=== PATIENT | female | born 1990 | race Caucasian/White ===

== ENCOUNTER → 2017-04-19 | Outpatient (CLI) | payer BC | LOC: HPND 08:27 | PROVIDERS: ATTEND Obstetrics & Gynecology | DX: O10.012 Pre-existing essential hypertension complicating pregnancy, second trimester (principal); O36.5920 Maternal care for other known or suspected poor fetal growth, second trimester, not applicable or unspecified | CPT/HCPCS: 76811; 76825; 76827; 93325 ==

== ENCOUNTER → 2017-05-10 | Outpatient (CLI) | payer BC | LOC: HPND 09:51 | PROVIDERS: ATTEND Obstetrics & Gynecology | DX: O10.012 Pre-existing essential hypertension complicating pregnancy, second trimester (principal); O99.342 Other mental disorders complicating pregnancy, second trimester; O36.5920 Maternal care for other known or suspected poor fetal growth, second trimester, not applicable or unspecified | CPT/HCPCS: 76816; 76818; 76820; 76821 ==

== ENCOUNTER → 2017-05-25 | Emergency (ER) | payer BC ==
[2017-05-25] VITALS (7 sets, daily range): BP systolic 131–146; BP diastolic 77–90; PULSE 75–91; RESP 18
[~2017-05-25] VITALS: Ht 157.5 cm; Wt 82.0 kg
[~2017-05-25] MED LIST: ASPI81CH6 CHEW; LABE200T2 PO; LEXA10TA PO; NIFE1TAB86 PO; PANT40TA3 PO; PREN29CH
--- NOTE | 2017-05-25 22:22 | PD ---
HPI Chief Complaint vaginal bleeding Date Seen: May 25, 2017 Time Seen: 22:00 Travel History International Travel<30 Days: No Contact w/Intl Traveler<30Days: No Known Affected Area: No History of Present Illness HPI 27 yo wf doing well but developed vaginal bleeding spontaneous. Not associated with sex. And has had elevated BP. On labetalol 200mg BID and procardia XL 60 mg Weeks Gestation: 28 : 2 History Past Medical History Narrative Medical hypertension Past Surgical History Surgical History: No Previous Surgery Social History Alcohol Use: No Tobacco Use: No Substance Abuse: No Allergies-Medications (Allergen,Severity, Reaction): Coded Allergies: No Known Allergies (Verified Allergy, 05/25/17) Review of Systems Except as stated in HPI: all other systems reviewed are Neg Physical Exam Narrative GENERAL: Well-nourished, well-developed patient. SKIN: Warm and dry. HEAD: Normocephalic and atraumatic. EYES: No scleral icterus. No injection or drainage. ENT: No nasal drainage noted. Mucous membranes pink. Airway patent. NECK: Supple, trachea midline. No JVD. CARDIOVASCULAR: Regular rate and rhythm without murmurs, gallops, or rubs. RESPIRATORY: Breath sounds equal bilaterally. No accessory muscle use. BREASTS: Bilateral exam showed no masses , no retractions, no nipple discharge. ABDOMEN/GI: Abdomen soft, non-tender, bowel sounds present, no rebound, no guarding Gravid to [-] weeks size Fundal Height: [-] GENITOURINARY: External Genitalia: intact and normal in appearance BUS glands: [-] Cervix: [-] Dilatation: closed blood at os Effacement: 70 Station: [-] Presentation: vtx Membranes: intact Uterine Contractions: [-] FHT's: Category: 1 Baseline: [-] Reactive: [-] Variability: [-] Decels: [-] EXTREMITIES: No cyanosis or edema. BACK: Nontender without obvious deformity. No CVA tenderness. NEUROLOGICAL: Awake and alert. Motor and sensory grossly within normal limits. Five out of 5 muscle strength in all muscle groups. Normal speech. Data Data Vital Signs Reviewed: No Orders Orders Vital Signs (Adult) .ON ADMISSION (05/25/17 21:48) ^ Labor Status (05/25/17 21:48) Urinalysis - C+S If Indicated (05/25/17 21:48) ^ Non Stress Test (05/25/17 21:48) Diet Regular Basic (05/26/17 Breakfast) Cbc No Diff, Includes Plts (05/25/17 21:48) Comprehensive Metabolic Panel (05/25/17 21:48) Group B Strep: Negative MDM Medical Record Reviewed: Yes Interpretation(s) vaginal bleeding at 28 weeks Plan doing well, LABS, 24 hour urine and consider 23 hour obs iMcah Damico MD May 25, 2017 22:22
[2017-05-25 22:33] LABS: HEMATOCRIT 34.7 % (35.0-46.0); MEAN CELL VOLUME 96.5 FL (80.0-100.0); MEAN CORPUSCULAR HEMOGLOBIN 33.5 PG (27.0-34.0); MEAN CORPUSCULAR HGB CONC 34.7 % (32.0-36.0); MEAN PLATELET VOLUME 8.4 FL (7.0-11.0); PLATELET COUNT 226 TH/MM3 (150-450); RED BLOOD COUNT 3.59 MIL/MM3 (4.00-5.30); WHITE BLOOD COUNT 12.4 TH/MM3 (4.0-11.0)
[2017-05-25 22:38] LABS: BACTERIA, URINE RARE /hpf; BILIRUBIN, URINE NEG (NEG); BLOOD, URINE SMALL (NEG); GLUCOSE,URINE TRACE mg/dL (NEG); KETONE, URINE NEG (NEG); NITRITE,URINE NEG (NEG); PH, URINE 6.5 (5.0-8.5); SQUAMOUS EPITHELIAL CELL URINE <1 /hpf (0-5); URINE COLOR LIGHT-YELLOW (YELLW/STRAW); URINE LEUKOCYTE ESTERASE NEG (NEG)
[2017-05-25 22:50] LABS: ALBUMIN 2.9 GM/DL (3.4-5.0); ALT (GPT) 19 U/L (10-53); AST (GOT) 13 U/L (15-37); BICARBONATE 27.5 MEQ/L (21.0-32.0); BLOOD UREA NITROGEN 7 MG/DL (7-18); CALCIUM 8.5 MG/DL (8.5-10.1); CHLORIDE 106 MEQ/L (98-107); CREATININE 0.45 MG/DL (0.50-1.00); GLOMERULAR FILTRATION RATE 165 ML/MIN (>89); GLUCOSE,RANDOM 104 MG/DL (74-106); SODIUM (NA) 139 MEQ/L (136-145)
[2017-05-25 22:52] LABS: ALKALINE PHOSPHATASE 84 U/L (45-117); TOTAL BILIRUBIN ADULT 0.1 MG/DL (0.2-1.0); TOTAL PROTEIN 6.4 GM/DL (6.4-8.2)
[2017-06-01 17:21] VITALS: BP 141/81; PULSE 75; RESP 16; TEMP 98
== END | disposition home or self-care (01) ==
LOC: HOBED 21:05
DX: O46.93 Antepartum hemorrhage, unspecified, third trimester (principal); Z3A.28 28 weeks gestation of pregnancy
CPT/HCPCS: 36415; 80053; 81001; 85027; 99283

== ENCOUNTER 2017-05-26 12:10 | Inpatient (IN) | payer BC ==
[~2017-05-26] VITALS: Ht 157.5 cm; Wt 81.6 kg
[2017-05-26] VITALS (7 sets, daily range): BP systolic 148–157; BP diastolic 69–99; PULSE 68–81; RESP 14–20; TEMP 98–98.1
[~2017-05-26 12:10] MED LIST changes: -ASPI81CH6 CHEW
--- NOTE | 2017-05-26 12:58 | HHI.HP ---
HPI Date Seen: May 26, 2017 Time Seen: 12:45 Travel History International Travel<30 Days: No Contact w/Intl Traveler<30Days: No Known Affected Area: No History of Present Illness HPI 27 yo 28 2/7with chronic hypertension who is on 2 medications to control BP. She had bleeding last night and was monitored and sent home last night. she returned to [facility] [place] routine testing and has S/D ratio jumped to 7.2 change and plan to complete 24 hour urine in house and get steroids Weeks Gestation: 28 Para: 0 : 2 History Past Medical History Narrative Medical anxiety HTN, Gest HTN IUGR Past Surgical History Surgical History: No Previous Surgery Family History Family History: Negative Social History Alcohol Use: No Tobacco Use: No Substance Abuse: No Allergies-Medications (Allergen,Severity, Reaction): Coded Allergies: No Known Allergies (Verified Allergy, Unknown, 05/26/17) Home Meds Reported Medications Pantoprazole (Pantoprazole) 40 Mg Tab, 40 MG PO DAILY for Reflux, #30 TAB 0 Refills 05/26/17 Escitalopram (Lexapro) 10 Mg Tab, 10 MG PO DAILY, #30 TAB 0 Refills 05/26/17 Nifedipine ER 24 HR (Procardia XL) 60 Mg Tab, 60 MG PO DAILY, #30 TAB 0 Refills 05/26/17 Labetalol (Labetalol) 200 Mg Tab, 200 MG PO BID for Blood Pressure Management, TAB 0 Refills 05/26/17 Without A Vit W/ Fe F (Prenata 29-1 mg) 29 Mg Iron-1 Mg Chw, DAILY 05/26/17 Review of Systems Except as stated in HPI: all other systems reviewed are Neg Physical Exam Narrative GENERAL: Well-nourished, well-developed patient. SKIN: Warm and dry. HEAD: Normocephalic and atraumatic. EYES: No scleral icterus. No injection or drainage. ENT: No nasal drainage noted. Mucous membranes pink. Airway patent. NECK: Supple, trachea midline. No JVD. CARDIOVASCULAR: Regular rate and rhythm without murmurs, gallops, or rubs. RESPIRATORY: Breath sounds equal bilaterally. No accessory muscle use. BREASTS: Bilateral exam showed no masses , no retractions, no nipple discharge. ABDOMEN/GI: Abdomen soft, non-tender, bowel sounds present, no rebound, no guarding Gravid to [-] weeks size Fundal Height: [-] GENITOURINARY: External Genitalia: intact and normal in appearance BUS glands: [-] Cervix: [-] Dilatation: [-] Effacement: [-] Station: [-] Presentation: [-] Membranes: [intact or ruptured] Uterine Contractions: [-] FHT's: Category: [-] Baseline: [-] Reactive: [-] Variability: [-] Decels: [-] EXTREMITIES: No cyanosis or edema. BACK: Nontender without obvious deformity. No CVA tenderness. NEUROLOGICAL: Awake and alert. Motor and sensory grossly within normal limits. Five out of 5 muscle strength in all muscle groups. Normal speech. Caprini VTE Risk Assessment Caprini VTE Risk Assessment: No/Low Risk (score <= 1) Caprini Risk Assessment Model Point Value = 1 Point Value = 2 Point Value = 3 Point Value = 5 Age 41-60 Minor surgery BMI > 25 kg/m2 Swollen legs Varicose veins or History of unexplained or recurrent spontaneous Oral contraceptives or hormone replacement Sepsis (< 1 month) Serious lung disease, including pneumonia (< 1 month) Abnormal pulmonary function Acute myocardial infarction Congestive heart failure (< 1 month) History of inflammatory bowel disease Medical patient at bed rest Age 61-74 Arthroscopic surgery Major open surgery (> 45 min) Laparoscopic surgery (> 45 min) Malignancy Confined to bed (> 72 hours) Immobilizing plaster cast Central venous access Age >= 75 History of VTE Family history of VTE Factor V Leiden Prothrombin [id number] Lupus anticoagulant Anticardiolipin antibodies Elevated serum homocysteine Heparin-induced thrombocytopenia Other congenital or acquired thrombophilia Stroke (< 1 month) Elective arthroplasty Hip, pelvis, or leg fracture Acute spinal cord injury (< 1 month) Prophylaxis Regimen Total Risk Factor Score Risk Level Prophylaxis Regimen 0-1 Low Early ambulation 2 Moderate Order ONE of the following: *Sequential Compression Device (SCD) *Heparin 5000 units SQ BID 3-4 Higher Order ONE of the following medications: *Heparin 5000 units SQ TID *Enoxaparin/Lovenox 40 mg SQ daily (WT < 150 kg, CrCl > 30 mL/min) *Enoxaparin/Lovenox 30 mg SQ daily (WT < 150 kg, CrCl > 10-29 mL/min) *Enoxaparin/Lovenox 30 mg SQ BID (WT < 150 kg, CrCl > 30 mL/min) AND/OR *Sequential Compression Device (SCD) 5 or more Highest Order ONE of the following medications: *Heparin 5000 units SQ TID (Preferred with Epidurals) *Enoxaparin/Lovenox 40 mg SQ daily (WT < 150 kg, CrCl > 30 mL/min) *Enoxaparin/Lovenox 30 mg SQ daily (WT < 150 kg, CrCl > 10-29 mL/min) *Enoxaparin/Lovenox 30 mg SQ BID (WT < 150 kg, CrCl > 30 mL/min) AND *Sequential Compression Device (SCD) Data Data Vital Signs Reviewed: Yes Group B Strep: Negative Labs CMP and CBC normal last night Assessment/Plan Problem List: (1) 28 weeks gestation of ICD Codes: Z3A.28 - 28 weeks gestation of (2) Hypertension affecting in third trimester ICD Codes: O16.3 - Unspecified maternal hypertension, third trimester Assessment and Plan admit 23 hr obs, monitor HTN and give steroids Micah Damico MD May 26, 2017 12:58
[2017-05-26] MEDS ORDERED: ONDANSETRON ODT 4 MG TAB PO PRN (13:00)
[2017-05-26] MEDS ORDERED: ZOLPIDEM TARTRATE 5 MG TAB PO PRN (13:00)
[2017-05-26] MEDS ORDERED: BETAMETHASONE SOD PHOS/ACETATE SUSP 30 MG/5 ML VIAL IM ONE (13:00)
[2017-05-26] MEDS ORDERED: SODIUM CHLORIDE 0.9% FLUSH 10 ML FLUSH IV FLUSH PRN (13:00)
[2017-05-26] MEDS ORDERED: ASPI81CH6 CHEW (14:17)
[2017-05-26] MEDS: NIFEdipine 60 MG SUSTAINED RELEASE TAB PO SCH (15:24)
[2017-05-26] MEDS: ASPIRIN 81 MG CHEW TAB CHEW SCH (15:27)
[2017-05-26] MEDS: SODIUM CHLORIDE 0.9% FLUSH 10 ML FLUSH IV FLUSH SCH (21:00)
[2017-05-26] MEDS: LABETALOL HCL 200 MG TAB PO SCH (21:26)
[2017-05-26] MEDS: ESCITALOPRAM OXALATE 10 MG TAB PO SCH (21:26)
[2017-05-26] MEDS: PANTOPRAZOLE SOD 40 MG DELAYED RELEASE TAB PO SCH (21:47)
[2017-05-27] VITALS (11 sets, daily range): BP systolic 138–171; BP diastolic 72–99; PULSE 71–84; RESP 13–16; TEMP 98.1–98.8
[2017-05-27 04:42] LABS: AUTOMATED NEUTROPHIL # 16.8 TH/MM3 (1.8-7.7); BASOPHIL % 0.2 % (0.0-2.0); LYMPH % 7.9 % (9.0-44.0); LYMPHOCYTE # 1.5 TH/MM3 (1.0-4.8); MEAN CELL VOLUME 96.3 FL (80.0-100.0); MEAN CORPUSCULAR HEMOGLOBIN 33.8 PG (27.0-34.0); MEAN CORPUSCULAR HGB CONC 35.1 % (32.0-36.0); MEAN PLATELET VOLUME 8.3 FL (7.0-11.0); MONO % 2.3 % (0.0-8.0); MONOCYTE # 0.4 TH/MM3 (0-0.9); NEUT % 89.6 % (16.0-70.0); PLATELET COUNT 245 TH/MM3 (150-450); RED BLOOD COUNT 3.85 MIL/MM3 (4.00-5.30); RED CELL DISTRIBUTION WIDTH 12.9 % (11.6-17.2); WHITE BLOOD COUNT 18.7 TH/MM3 (4.0-11.0)
[2017-05-27 05:05] LABS: ALBUMIN 2.9 GM/DL (3.4-5.0); ALT (GPT) 22 U/L (10-53); AST (GOT) 18 U/L (15-37); BICARBONATE 18.9 MEQ/L (21.0-32.0); BLOOD UREA NITROGEN 7 MG/DL (7-18); CALCIUM 8.6 MG/DL (8.5-10.1); CHLORIDE 107 MEQ/L (98-107); CREATININE 0.49 MG/DL (0.50-1.00); GLOMERULAR FILTRATION RATE 149 ML/MIN (>89); GLUCOSE,RANDOM 115 MG/DL (74-106); SODIUM (NA) 136 MEQ/L (136-145)
[2017-05-27 05:07] LABS: ALKALINE PHOSPHATASE 90 U/L (45-117); TOTAL BILIRUBIN ADULT 0.3 MG/DL (0.2-1.0); TOTAL PROTEIN 6.8 GM/DL (6.4-8.2)
[2017-05-27] MEDS: LABETALOL HCL 200 MG TAB PO SCH ×2 (08:57→21:17)
[2017-05-27] MEDS: NIFEdipine 60 MG SUSTAINED RELEASE TAB PO SCH (08:57)
[2017-05-27] MEDS: ASPIRIN 81 MG CHEW TAB CHEW SCH (08:57)
[2017-05-27] MEDS: SODIUM CHLORIDE 0.9% FLUSH 10 ML FLUSH IV FLUSH SCH ×2 (08:57→21:00)
[2017-05-27] MEDS: ESCITALOPRAM OXALATE 10 MG TAB PO SCH ×2 (09:00→21:17)
[2017-05-27] MEDS ORDERED: BETAMETHASONE SOD PHOS/ACETATE SUSP 30 MG/5 ML VIAL IM ONE (13:00)
[2017-05-27] MEDS: ACETAMINOPHEN 325 MG TAB PO PRN (18:09)
[2017-05-27] MEDS: PANTOPRAZOLE SOD 40 MG DELAYED RELEASE TAB PO SCH (21:17)
[2017-05-28] MEDS: NIFEdipine 60 MG SUSTAINED RELEASE TAB PO SCH (08:56)
[2017-05-28] MEDS: ASPIRIN 81 MG CHEW TAB CHEW SCH (08:56)
[2017-05-28] MEDS: LABETALOL HCL 200 MG TAB PO SCH ×2 (08:56→21:03)
[2017-05-28] MEDS: SODIUM CHLORIDE 0.9% FLUSH 10 ML FLUSH IV FLUSH SCH ×2 (09:00→21:00)
--- NOTE | 2017-05-28 09:52 | PD.OB.ANTE ---
Subjective Diagnosis: (1) 28 weeks gestation of (2) Hypertension affecting in third trimester Interval History Pt is at 28 + wks here for 2 dys now and doing well...BP in good range, no further bleeding, good FM, occ ctx..no co. Pt has received 2 doses of steroids. Pt completed 24 hour urine with low 300 result. Pt to have repeat BP with doppler flow studies tomorrow. Objective Vital Signs Vital Signs Date Time Temp Pulse Resp B/P (MAP) Pulse Ox O2 Delivery O2 Flow Rate FiO2 05/27/17 20:16 74 149/81 (103) 05/27/17 20:00 98.2 15 05/27/17 19:59 79 171/77 (108) 05/27/17 18:06 79 152/76 (101) 05/27/17 13:36 98.8 05/27/17 13:36 16 05/27/17 13:31 71 143/75 (97) 05/27/17 10:13 78 138/72 (94) Physical Exam GENERAL: Well-nourished, well-developed patient. CARDIOVASCULAR: Regular rate and rhythm without murmurs, gallops, or rubs. RESPIRATORY: Breath sounds equal bilaterally. No accessory muscle use. ABDOMEN/GI: Abdomen soft, non-tender. Fundus: [-] GENITOURINARY: External Genitalia: intact and normal in appearance Cervix: [-] Dilatation: [-] Effacement: [-] Station: [-] Presentation: [-] Membranes: [-] Uterine Contractions: [-] FHT's: Category:reactive tracing for over 24 hours and reactive nsts the rest of the weekend. Baseline: [-] Reactive: [-] Variability: [-] Decels: [-] EXTREMITIES: No cyanosis or edema, non-tender, without signs of DVT. Assessment and Plan Problem List: (1) 28 weeks gestation of ICD Codes: Z3A.28 - 28 weeks gestation of (2) Hypertension affecting in third trimester ICD Codes: O16.3 - Unspecified maternal hypertension, third trimester Assessment and Plan IUP at 28 + wks with chronic HTN with elevated dopplers on recent BPP associated with a slight bleeding episode...here for prolonged monitoring ....overall doing very well and stable. Lidia Velásquez MD May 28, 2017 09:52
[2017-05-28] MEDS: PANTOPRAZOLE SOD 40 MG DELAYED RELEASE TAB PO SCH (21:02)
[2017-05-28] MEDS: ESCITALOPRAM OXALATE 10 MG TAB PO SCH (21:03)
--- NOTE | 2017-05-29 07:42 | PD.OB.ANTE ---
Subjective Diagnosis: (1) 28 weeks gestation of Diagnosis: Principal (2) Hypertension affecting in third trimester Diagnosis: Principal (3) Intrauterine growth restriction (IUGR) affecting care of mother, third trimester, single gestation Diagnosis: Secondary Antepartum ROS: Reports: Other (doing well no headache) Objective Physical Exam GENERAL: Well-nourished, well-developed patient. CARDIOVASCULAR: Regular rate and rhythm without murmurs, gallops, or rubs. RESPIRATORY: Breath sounds equal bilaterally. No accessory muscle use. ABDOMEN/GI: Abdomen soft, non-tender. Fundus: [-] GENITOURINARY: External Genitalia: intact and normal in appearance Cervix: [-] Dilatation: cl Effacement: [-] Station: [-] Presentation: vtx Membranes: [-] Uterine Contractions: minimal FHT's: Category: 1 Baseline: [-] Reactive: [-] Variability: [-] Decels: [-] EXTREMITIES: No cyanosis or edema, non-tender, without signs of DVT. Assessment and Plan Problem List: (1) 28 weeks gestation of ICD Codes: Z3A.28 - 28 weeks gestation of (2) Hypertension affecting in third trimester ICD Codes: O16.3 - Unspecified maternal hypertension, third trimester Assessment and Plan IUP at 28 + wks with chronic HTN with elevated dopplers on recent BPP associated with a slight bleeding episode. She had 24 urine just over 300mg/24 hr Micah Damico MD May 29, 2017 07:42
[2017-05-29] MEDS: LABETALOL HCL 200 MG TAB PO SCH ×2 (08:11→20:33)
[2017-05-29] MEDS: ASPIRIN 81 MG CHEW TAB CHEW SCH (08:11)
[2017-05-29] MEDS: NIFEdipine 60 MG SUSTAINED RELEASE TAB PO SCH (08:12)
[2017-05-29] MEDS: SODIUM CHLORIDE 0.9% FLUSH 10 ML FLUSH IV FLUSH SCH ×2 (08:12→20:33)
[2017-05-29] MEDS: ACETAMINOPHEN 325 MG TAB PO PRN (08:12)
[2017-05-29] MEDS: PANTOPRAZOLE SOD 40 MG DELAYED RELEASE TAB PO SCH (20:33)
[2017-05-29] MEDS: ESCITALOPRAM OXALATE 10 MG TAB PO SCH (20:33)
[2017-05-30] MEDS: NIFEdipine 60 MG SUSTAINED RELEASE TAB PO SCH (08:48)
[2017-05-30] MEDS: LABETALOL HCL 200 MG TAB PO SCH ×2 (08:48→20:54)
[2017-05-30] MEDS: ASPIRIN 81 MG CHEW TAB CHEW SCH (08:48)
[2017-05-30] MEDS: SODIUM CHLORIDE 0.9% FLUSH 10 ML FLUSH IV FLUSH SCH ×2 (09:00→21:00)
[2017-05-30] MEDS: ACETAMINOPHEN 325 MG TAB PO PRN ×2 (17:22→20:07)
--- NOTE | 2017-05-30 19:16 | PD.OB.ANTE ---
Subjective Diagnosis: (1) 28 weeks gestation of Diagnosis: Principal (2) Hypertension affecting in third trimester Diagnosis: Principal (3) Intrauterine growth restriction (IUGR) affecting care of mother, third trimester, single gestation Diagnosis: Secondary Objective Physical Exam GENERAL: Well-nourished, well-developed patient. ABDOMEN/GI: Abdomen soft, non-tender. Fundus: [-] GENITOURINARY: External Genitalia: intact and normal in appearance Cervix: [-] Dilatation: [-] Effacement: [-] Station: [-] Presentation: [-] Membranes: [-] Uterine Contractions: [-] FHT's: Category: 1 Baseline: [-] Reactive: [-] Variability: [-] Decels: [-] EXTREMITIES: No cyanosis or edema, non-tender, without signs of DVT. Assessment and Plan Problem List: (1) 28 weeks gestation of ICD Codes: Z3A.28 - 28 weeks gestation of (2) Hypertension affecting in third trimester ICD Codes: O16.3 - Unspecified maternal hypertension, third trimester (3) Intrauterine growth restriction (IUGR) affecting care of mother, third trimester, single gestation ICD Codes: O36.5930 - Maternal care for other known or suspected poor growth, third trimester, not applicable or unspecified Assessment and Plan IUP at 28 + wks severe IUGR and hypertension. Patient has received steroids and will need to deliver in tertiary care center Micah Damico MD May 30, 2017 19:16
[2017-05-30] MEDS: ESCITALOPRAM OXALATE 10 MG TAB PO SCH (20:54)
[2017-05-30] MEDS: PANTOPRAZOLE SOD 40 MG DELAYED RELEASE TAB PO SCH (20:54)
[2017-05-31 05:53] LABS: HEMATOCRIT 36.2 % (35.0-46.0); HEMOGLOBIN 12.6 GM/DL (11.6-15.3); MEAN CELL VOLUME 96.5 FL (80.0-100.0); MEAN CORPUSCULAR HEMOGLOBIN 33.7 PG (27.0-34.0); MEAN CORPUSCULAR HGB CONC 34.9 % (32.0-36.0); MEAN PLATELET VOLUME 8.1 FL (7.0-11.0); PLATELET COUNT 215 TH/MM3 (150-450); RED BLOOD COUNT 3.75 MIL/MM3 (4.00-5.30); RED CELL DISTRIBUTION WIDTH 12.9 % (11.6-17.2); WHITE BLOOD COUNT 12.9 TH/MM3 (4.0-11.0)
[2017-05-31 06:14] LABS: ALBUMIN 2.8 GM/DL (3.4-5.0); AST (GOT) 8 U/L (15-37); BICARBONATE 24.4 MEQ/L (21.0-32.0); BLOOD UREA NITROGEN 6 MG/DL (7-18); CALCIUM 8.5 MG/DL (8.5-10.1); CHLORIDE 108 MEQ/L (98-107); CREATININE 0.45 MG/DL (0.50-1.00); GLOMERULAR FILTRATION RATE 165 ML/MIN (>89); GLUCOSE,RANDOM 78 MG/DL (74-106); SODIUM (NA) 140 MEQ/L (136-145)
[2017-05-31 06:15] LABS: ALT (GPT) 20 U/L (10-53)
[2017-05-31 06:17] LABS: ALKALINE PHOSPHATASE 82 U/L (45-117); TOTAL BILIRUBIN ADULT 0.2 MG/DL (0.2-1.0); TOTAL PROTEIN 6.3 GM/DL (6.4-8.2)
--- NOTE | 2017-05-31 07:38 | PD.OB.ANTE ---
Subjective Diagnosis: (1) 28 weeks gestation of Diagnosis: Principal (2) Hypertension affecting in third trimester Diagnosis: Principal (3) Intrauterine growth restriction (IUGR) affecting care of mother, third trimester, single gestation Diagnosis: Secondary Antepartum ROS: Reports: Other (patient is doing well ) Objective Vital Signs Vital Signs Date Time Temp Pulse Resp B/P (MAP) Pulse Ox O2 Delivery O2 Flow Rate FiO2 05/31/17 06:11 18 Lab & Micro Results Test 05/31/17 05:11 05/31/17 07:00 White Blood Count 12.9 TH/MM3 Red Blood Count 3.75 MIL/MM3 Hemoglobin 12.6 GM/DL Hematocrit 36.2 % Mean Corpuscular Volume 96.5 FL Mean Corpuscular Hemoglobin 33.7 PG Mean Corpuscular Hemoglobin Concent 34.9 % Red Cell Distribution Width 12.9 % Platelet Count 215 TH/MM3 Mean Platelet Volume 8.1 FL Blood Urea Nitrogen 6 MG/DL Creatinine 0.45 MG/DL Random Glucose 78 MG/DL Total Protein 6.3 GM/DL Albumin 2.8 GM/DL Calcium Level 8.5 MG/DL Uric Acid 1.8 MG/DL Alkaline Phosphatase 82 U/L Aspartate Amino Transf (AST/SGOT) 8 U/L Alanine Aminotransferase (ALT/SGPT) 20 U/L Total Bilirubin 0.2 MG/DL Sodium Level 140 MEQ/L Potassium Level 3.5 MEQ/L Chloride Level 108 MEQ/L Carbon Dioxide Level 24.4 MEQ/L Anion Gap 8 MEQ/L Estimat Glomerular Filtration Rate 165 ML/MIN Physical Exam GENERAL: Well-nourished, well-developed patient. CARDIOVASCULAR: Regular rate and rhythm without murmurs, gallops, or rubs. RESPIRATORY: Breath sounds equal bilaterally. No accessory muscle use. ABDOMEN/GI: Abdomen soft, non-tender. Fundus: [-] GENITOURINARY: External Genitalia: intact and normal in appearance Cervix: [-] Dilatation: [-] Effacement: [-] Station: [-] Presentation: [-] Membranes: [-] Uterine Contractions: [-] FHT's: Category: 1 Baseline: [-] Reactive: [-] Variability: [-] Decels: [-] EXTREMITIES: No cyanosis or edema, non-tender, without signs of DVT. Assessment and Plan Problem List: (1) 28 weeks gestation of ICD Codes: Z3A.28 - 28 weeks gestation of (2) Hypertension affecting in third trimester ICD Codes: O16.3 - Unspecified maternal hypertension, third trimester (3) Intrauterine growth restriction (IUGR) affecting care of mother, third trimester, single gestation ICD Codes: O36.5930 - Maternal care for other known or suspected poor growth, third trimester, not applicable or unspecified Assessment and Plan IUP at 28 + wks severe IUGR and hypertension. Patient has received steroids and will need to deliver in tertiary care center Micah Damico MD May 31, 2017 07:38
[2017-05-31] MEDS: NIFEdipine 60 MG SUSTAINED RELEASE TAB PO SCH (08:42)
[2017-05-31] MEDS: LABETALOL HCL 200 MG TAB PO SCH ×2 (08:42→20:55)
[2017-05-31] MEDS: ASPIRIN 81 MG CHEW TAB CHEW SCH (08:42)
[2017-05-31] MEDS: SODIUM CHLORIDE 0.9% FLUSH 10 ML FLUSH IV FLUSH SCH (20:54)
[2017-05-31] MEDS: ESCITALOPRAM OXALATE 10 MG TAB PO SCH (20:55)
[2017-05-31] MEDS: PANTOPRAZOLE SOD 40 MG DELAYED RELEASE TAB PO SCH (20:55)
[2017-06-01] MEDS: LABETALOL HCL 200 MG TAB PO SCH (08:28)
[2017-06-01] MEDS: ASPIRIN 81 MG CHEW TAB CHEW SCH (08:28)
[2017-06-01] MEDS: NIFEdipine 60 MG SUSTAINED RELEASE TAB PO SCH (08:28)
--- NOTE | 2017-06-01 08:50 | PD.OB.ANTE ---
Subjective Diagnosis: (1) 28 weeks gestation of Diagnosis: Principal (2) Hypertension affecting in third trimester Diagnosis: Principal (3) Intrauterine growth restriction (IUGR) affecting care of mother, third trimester, single gestation Diagnosis: Secondary Antepartum ROS: Reports: Other (doing well but awaiting growth scan) Objective Physical Exam GENERAL: Well-nourished, well-developed patient. CARDIOVASCULAR: Regular rate and rhythm without murmurs, gallops, or rubs. RESPIRATORY: Breath sounds equal bilaterally. No accessory muscle use. ABDOMEN/GI: Abdomen soft, non-tender. Fundus: [-] GENITOURINARY: External Genitalia: intact and normal in appearance Cervix: [-] Dilatation: [-] Effacement: [-] Station: [-] Presentation: [-] Membranes: [-] Uterine Contractions: [-] FHT's: Category: [-] Baseline: [-] Reactive: [-] Variability: [-] Decels: [-] EXTREMITIES: No cyanosis or edema, non-tender, without signs of DVT. Assessment and Plan Problem List: (1) 28 weeks gestation of ICD Codes: Z3A.28 - 28 weeks gestation of (2) Hypertension affecting in third trimester ICD Codes: O16.3 - Unspecified maternal hypertension, third trimester (3) Intrauterine growth restriction (IUGR) affecting care of mother, third trimester, single gestation ICD Codes: O36.5930 - Maternal care for other known or suspected poor growth, third trimester, not applicable or unspecified Assessment and Plan IUP at 28 + wks severe IUGR and hypertension. Patient has received steroids and will need to deliver in tertiary care center Micah Damico MD Jun 01, 2017 08:50
[2017-06-01 12:03] VITALS: BP 140/72; PULSE 68
[2017-06-01 12:04] VITALS: RESP 18; TEMP 98.4
--- NOTE | 2017-06-01 18:14 | HHI.DCPOC ---
Discharge Care Plan Diagnosis: (1) 28 weeks gestation of (2) Hypertension affecting in third trimester Report Symptoms to Your Doctor -Temperature above 100.5 degrees -Redness, of incision or excessive or foul smelling drainage -Unusual pain or calf pain -Increased vaginal bleeding -Painful or difficulty urinating -Feelings of extreme sadness or anxiety after 2 weeks Goals to Promote Your Health * To prevent worsening of your condition and complications * To maintain your health at the optimal level Directions to Meet Your Goals Take your medications as prescribed Follow your dietary instruction Follow activity as directed Ensure plenty of rest for recovery Drink fluids for hydration Keep your appointments as scheduled Take your immunizations and boosters as scheduled If your symptoms worsen call your PCP, if no PCP go to Urgent Care Center or Emergency Room Smoking is Dangerous to Your Health. Avoid second hand smoke Call the 24-hour crisis hotline for domestic abuse at Micah Damico MD Jun 01, 2017 18:14
--- NOTE | 2017-06-01 18:16 | HHI.DS ---
Admission Date May 28, 2017 at 09:11 Discharge Date: Jun 01, 2017 Admitting Diagnosis Diagnosis: (1) 28 weeks gestation of Diagnosis: Principal ICD Codes: Z3A.28 - 28 weeks gestation of (2) Hypertension affecting in third trimester Diagnosis: Principal ICD Codes: O16.3 - Unspecified maternal hypertension, third trimester Brief History 27 yo 28 2/7with chronic hypertension who is on 2 medications to control BP. She had bleeding last night and was monitored and sent home last night. [place] [facility] [place] and has S/D ratio jumped to 7.2 change and plan to complete 24 hour urine in house and get steroids Hospital Course pt doing well SD ratio is now 3.7 down from 7. She will continue on bedrest at home. She will follow kick counts and movement Pt Condition on Discharge: Good Discharge Disposition: Discharge Home Discharge Instructions Diet Instructions: As Tolerated, No Restrictions Activities You Can Perform: Continue Bedrest Micah Damico MD Jun 01, 2017 18:16
== END 2017-06-01 18:28 | disposition home or self-care (01) | DRG 781 ==
LOC: H2EA 12:10 → OBSVTOIN 05-28 09:11
PROVIDERS: ADMIT Obstetrics & Gynecology; ATTEND Obstetrics & Gynecology
DX: O10.913 Unspecified pre-existing hypertension complicating pregnancy, third trimester (principal); O36.5930 Maternal care for other known or suspected poor fetal growth, third trimester, not applicable or unspecified; O46.93 Antepartum hemorrhage, unspecified, third trimester; Z3A.28 28 weeks gestation of pregnancy
CPT/HCPCS: 76816; 76819; 76820; 76821; 80053; 84157; 84550; 85025; 85027; J0702

== ENCOUNTER 2017-06-13 15:24 | Observation (INO) | payer BC ==
[~2017-06-13] VITALS: Ht 157.5 cm; Wt 127.0 kg
[~2017-06-13 15:24] MED LIST changes: +ASPI81CH6 CHEW
[2017-06-13] MEDS ORDERED: SODIUM CHLORIDE 0.9% FLUSH 10 ML FLUSH IV FLUSH PRN (16:15)
[2017-06-13] MEDS ORDERED: ZOLPIDEM TARTRATE 5 MG TAB PO PRN (16:15)
[2017-06-13] MEDS ORDERED: ACETAMINOPHEN 325 MG TAB PO PRN (16:15)
[2017-06-13] MEDS ORDERED: ONDANSETRON ODT 4 MG TAB PO PRN (16:15)
[2017-06-13 18:55] LABS: AMORPHOUS SEDIMENT, URINE RARE; BACTERIA, URINE OCC /hpf; BILIRUBIN, URINE NEG (NEG); BLOOD, URINE NEG (NEG); GLUCOSE,URINE NEG (NEG); KETONE, URINE NEG (NEG); NITRITE,URINE NEG (NEG); SQUAMOUS EPITHELIAL CELL URINE 6 /hpf (0-5); URINE COLOR LIGHT-YELLOW (YELLW/STRAW); URINE LEUKOCYTE ESTERASE MOD (NEG)
[2017-06-13 19:42] LABS: ALKALINE PHOSPHATASE 107 U/L (45-117); TOTAL BILIRUBIN ADULT 0.2 MG/DL (0.2-1.0); TOTAL PROTEIN 6.7 GM/DL (6.4-8.2)
[2017-06-13 19:50] LABS: ALT (GPT) 31 U/L (10-53); AST (GOT) 27 U/L (15-37); DIRECT BILIRUBIN ADULT LESS THAN 0.1 MG/DL (0.0-0.2); INDIRECT BILIRUBIN 0.1 MG/DL (0.0-0.8)
[2017-06-13 19:51] LABS: ALBUMIN 2.9 GM/DL (3.4-5.0)
[2017-06-13 20:07] VITALS: BP 141/94; PULSE 79
[2017-06-13 20:10] VITALS: RESP 16; TEMP 98.4
[2017-06-13 20:31] LABS: AUTOMATED NEUTROPHIL # 8.1 TH/MM3 (1.8-7.7); BASOPHIL % 0.3 % (0.0-2.0); EOSINOPHIL % 0.4 % (0.0-4.0); HEMATOCRIT 37.1 % (35.0-46.0); LYMPH % 24.3 % (9.0-44.0); LYMPHOCYTE # 2.8 TH/MM3 (1.0-4.8); MEAN CELL VOLUME 96.7 FL (80.0-100.0); MEAN CORPUSCULAR HEMOGLOBIN 33.7 PG (27.0-34.0); MEAN CORPUSCULAR HGB CONC 34.9 % (32.0-36.0); MEAN PLATELET VOLUME 8.6 FL (7.0-11.0); MONO % 5.8 % (0.0-8.0); MONOCYTE # 0.7 TH/MM3 (0-0.9); NEUT % 69.2 % (16.0-70.0); PLATELET COUNT 227 TH/MM3 (150-450); RED BLOOD COUNT 3.84 MIL/MM3 (4.00-5.30); RED CELL DISTRIBUTION WIDTH 13.1 % (11.6-17.2); WHITE BLOOD COUNT 11.7 TH/MM3 (4.0-11.0)
[2017-06-13] MEDS: SODIUM CHLORIDE 0.9% FLUSH 10 ML FLUSH IV FLUSH SCH (21:20)
--- NOTE | 2017-06-13 21:24 | HHI.HP ---
HPI Chief Complaint IUGR and hypertension Date Seen: Jun 13, 2017 Time Seen: 19:00 Travel History International Travel<30 Days: No Contact w/Intl Traveler<30Days: No Known Affected Area: No History of Present Illness HPI 27 yo 30 6/7 weeks here with hypertension and IUGR for past 3-4 weeks. She had preeclampsia work up 05/30 and now is in for preeclampsia work up Weeks Gestation: 30 Para: 0 : 2 History Past Medical History Narrative Medical hypertension on 2 meds, anxiety, and IUGR Past Surgical History Surgical History: No Previous Surgery Family History Family History: Negative Social History Alcohol Use: No Tobacco Use: No Substance Abuse: No Allergies-Medications (Allergen,Severity, Reaction): Coded Allergies: No Known Allergies (Verified Allergy, Unknown, 05/26/17) Home Meds Reported Medications Pantoprazole (Pantoprazole) 40 Mg Tab, 40 MG PO DAILY for Reflux, #30 TAB 0 Refills 05/26/17 Escitalopram (Lexapro) 10 Mg Tab, 10 MG PO DAILY, #30 TAB 0 Refills 05/26/17 Nifedipine ER 24 HR (Procardia XL) 60 Mg Tab, 60 MG PO DAILY, #30 TAB 0 Refills 05/26/17 Labetalol (Labetalol) 200 Mg Tab, 200 MG PO BID for Blood Pressure Management, TAB 0 Refills 05/26/17 Without A Vit W/ Fe F (Prenata 29-1 mg) 29 Mg Iron-1 Mg Chw, DAILY 05/26/17 Discontinued Reported Medications Aspirin (Aspirin Low Dose) 81 Mg Chew, 81 MG CHEW DAILY, TAB 0 Refills 05/26/17 Review of Systems Except as stated in HPI: all other systems reviewed are Neg Physical Exam Vital Signs Date Time Temp Pulse Resp B/P (MAP) Pulse Ox O2 Delivery O2 Flow Rate FiO2 06/13/17 20:07 79 141/94 (110) Narrative GENERAL: Well-nourished, well-developed patient. SKIN: Warm and dry. HEAD: Normocephalic and atraumatic. EYES: No scleral icterus. No injection or drainage. ENT: No nasal drainage noted. Mucous membranes pink. Airway patent. NECK: Supple, trachea midline. No JVD. CARDIOVASCULAR: Regular rate and rhythm without murmurs, gallops, or rubs. RESPIRATORY: Breath sounds equal bilaterally. No accessory muscle use. BREASTS: Bilateral exam showed no masses , no retractions, no nipple discharge. ABDOMEN/GI: Abdomen soft, non-tender, bowel sounds present, no rebound, no guarding Gravid to 28 weeks size Fundal Height: [-] GENITOURINARY: External Genitalia: intact and normal in appearance BUS glands: [-] Cervix: [-] Dilatation: no Effacement: [-] Station: [-] Presentation: [-] Membranes: [intact Uterine Contractions: [-] FHT's: Category: 1 Baseline: [-] Reactive: [-] Variability: [-] Decels: [-] EXTREMITIES: No cyanosis or edema. BACK: Nontender without obvious deformity. No CVA tenderness. NEUROLOGICAL: Awake and alert. Motor and sensory grossly within normal limits. Five out of 5 muscle strength in all muscle groups. Normal speech. Caprini VTE Risk Assessment Caprini VTE Risk Assessment: No/Low Risk (score <= 1) Caprini Risk Assessment Model Point Value = 1 Point Value = 2 Point Value = 3 Point Value = 5 Age 41-60 Minor surgery BMI > 25 kg/m2 Swollen legs Varicose veins or History of unexplained or recurrent spontaneous Oral contraceptives or hormone replacement Sepsis (< 1 month) Serious lung disease, including pneumonia (< 1 month) Abnormal pulmonary function Acute myocardial infarction Congestive heart failure (< 1 month) History of inflammatory bowel disease Medical patient at bed rest Age 61-74 Arthroscopic surgery Major open surgery (> 45 min) Laparoscopic surgery (> 45 min) Malignancy Confined to bed (> 72 hours) Immobilizing plaster cast Central venous access Age >= 75 History of VTE Family history of VTE Factor V Leiden Prothrombin [id number] Lupus anticoagulant Anticardiolipin antibodies Elevated serum homocysteine Heparin-induced thrombocytopenia Other congenital or acquired thrombophilia Stroke (< 1 month) Elective arthroplasty Hip, pelvis, or leg fracture Acute spinal cord injury (< 1 month) Prophylaxis Regimen Total Risk Factor Score Risk Level Prophylaxis Regimen 0-1 Low Early ambulation 2 Moderate Order ONE of the following: *Sequential Compression Device (SCD) *Heparin 5000 units SQ BID 3-4 Higher Order ONE of the following medications: *Heparin 5000 units SQ TID *Enoxaparin/Lovenox 40 mg SQ daily (WT < 150 kg, CrCl > 30 mL/min) *Enoxaparin/Lovenox 30 mg SQ daily (WT < 150 kg, CrCl > 10-29 mL/min) *Enoxaparin/Lovenox 30 mg SQ BID (WT < 150 kg, CrCl > 30 mL/min) AND/OR *Sequential Compression Device (SCD) 5 or more Highest Order ONE of the following medications: *Heparin 5000 units SQ TID (Preferred with Epidurals) *Enoxaparin/Lovenox 40 mg SQ daily (WT < 150 kg, CrCl > 30 mL/min) *Enoxaparin/Lovenox 30 mg SQ daily (WT < 150 kg, CrCl > 10-29 mL/min) *Enoxaparin/Lovenox 30 mg SQ BID (WT < 150 kg, CrCl > 30 mL/min) AND *Sequential Compression Device (SCD) Data Data Vital Signs Reviewed: Yes Orders Orders Place In Observation (06/13/17 ) Diet Regular Basic (06/13/17 Dinner) Vital Signs (Adult) [id number] AWAKE (06/13/17 16:10) Heart MILA.QSHIFT (06/13/17 16:10) Activity Bed Rest With Brp (06/13/17 16:10) Complete Blood Count With Diff (06/13/17 16:10) Hepatic Functional Panel (06/13/17 16:10) Total Protein 24hr Urine (06/13/17 16:10) Urinalysis - C+S If Indicated (06/13/17 16:10) Acetaminophen (Tylenol) (06/13/17 16:15) Sodium Chloride 0.9% Flush (Ns Flush) (06/13/17 21:00) Sodium Chloride 0.9% Flush (Ns Flush) (06/13/17 16:15) Zolpidem (Ambien) (06/13/17 16:15) Ondansetron Odt (Zofran Odt) (06/13/17 16:15) Specimen To Be Collected PRN (06/13/17 16:10) Labs Laboratory Tests Test 06/13/17 15:35 06/13/17 18:40 Urine Color LIGHT-YELLOW Urine Turbidity HAZY Urine pH 6.0 Urine Specific Cord 1.004 Urine Protein NEG Urine Glucose (UA) NEG Urine Ketones NEG Urine Occult Blood NEG Urine Nitrite NEG Urine Bilirubin NEG Urine Urobilinogen LESS THAN 2.0 Urine Leukocyte Esterase MOD Urine RBC 2 Urine WBC 4 Urine Squamous Epithelial Cells 6 Urine Amorphous Sediment RARE Urine Bacteria OCC Microscopic Urinalysis Comment CULT NOT INDICATED White Blood Count 11.7 Red Blood Count 3.84 Hemoglobin 13.0 Hematocrit 37.1 Mean Corpuscular Volume 96.7 Mean Corpuscular Hemoglobin 33.7 Mean Corpuscular Hemoglobin Concent 34.9 Red Cell Distribution Width 13.1 Platelet Count 227 Mean Platelet Volume 8.6 Neutrophils (%) (Auto) 69.2 Lymphocytes (%) (Auto) 24.3 Monocytes (%) (Auto) 5.8 Eosinophils (%) (Auto) 0.4 Basophils (%) (Auto) 0.3 Neutrophils # (Auto) 8.1 Lymphocytes # (Auto) 2.8 Monocytes # (Auto) 0.7 Eosinophils # (Auto) 0.0 Basophils # (Auto) 0.0 CBC Comment DIFF FINAL Differential Comment Total Bilirubin 0.2 Direct Bilirubin LESS THAN 0.1 Indirect Bilirubin 0.1 Aspartate Amino Transf (AST/SGOT) 27 Alanine Aminotransferase (ALT/SGPT) 31 Alkaline Phosphatase 107 Total Protein 6.7 Albumin 2.9 Assessment/Plan Problem List: (1) 30 weeks gestation of ICD Codes: Z3A.30 - 30 weeks gestation of (2) Hypertension affecting in third trimester ICD Codes: O16.3 - Unspecified maternal hypertension, third trimester (3) Intrauterine growth restriction (IUGR) affecting care of mother, third trimester, single gestation ICD Codes: O36.5930 - Maternal care for other known or suspected poor growth, third trimester, not applicable or unspecified Discharge Planning doing well, work up for preeclampsia Micah Damico MD Jun 13, 2017 21:24
[2017-06-13] MEDS ORDERED: ESCITALOPRAM OXALATE 10 MG TAB PO SCH (22:30)
[2017-06-13] MEDS ORDERED: PANTOPRAZOLE SOD 40 MG DELAYED RELEASE TAB PO SCH (22:45)
[2017-06-13 22:57] VITALS: BP 142/93; PULSE 73
[2017-06-13] MEDS: LABETALOL HCL 200 MG TAB PO SCH (22:58)
[2017-06-13 23:00] VITALS: RESP 16; TEMP 98.5
[2017-06-14] VITALS (9 sets, daily range): BP systolic 138–142; BP diastolic 94–97; PULSE 68–81; RESP 16–18; TEMP 98.1–98.8
[2017-06-14] MEDS ORDERED: PANTOPRAZOLE SOD 40 MG DELAYED RELEASE TAB PO SCH (09:00)
[2017-06-14] MEDS: SODIUM CHLORIDE 0.9% FLUSH 10 ML FLUSH IV FLUSH SCH (09:00)
[2017-06-14] MEDS ORDERED: NIFEdipine 60 MG SUSTAINED RELEASE TAB PO SCH (09:00)
[2017-06-14] MEDS: LABETALOL HCL 200 MG TAB PO SCH (11:03)
--- NOTE | 2017-06-14 20:05 | PD.OB.ANTE ---
Subjective Diagnosis: (1) 30 weeks gestation of Diagnosis: Principal (2) Hypertension affecting in third trimester Diagnosis: Principal (3) Intrauterine growth restriction (IUGR) affecting care of mother, third trimester, single gestation Diagnosis: Principal Antepartum ROS: Reports: Other (rule out preeclampsia) Objective Vital Signs Vital Signs Date Time Temp Pulse Resp B/P (MAP) Pulse Ox O2 Delivery O2 Flow Rate FiO2 06/14/17 12:28 98.8 06/14/17 12:28 18 06/14/17 12:27 70 142/97 (112) 06/14/17 08:55 70 06/14/17 08:50 76 06/14/17 08:49 98.1 18 06/14/17 08:44 81 141/95 (110) 06/14/17 06:05 73 138/94 (109) 06/14/17 02:20 98.3 16 06/14/17 02:18 68 140/94 (109) 06/13/17 23:00 98.5 16 06/13/17 22:57 73 142/93 (109) 06/13/17 20:10 98.4 16 06/13/17 20:07 79 141/94 (110) Lab & Micro Results Test 06/14/17 18:17 Urine Total Volume 24 Hours 3550 ML Urine Total Protein 24 Hour 192 MG/24HR Physical Exam GENERAL: Well-nourished, well-developed patient. CARDIOVASCULAR: Regular rate and rhythm without murmurs, gallops, or rubs. RESPIRATORY: Breath sounds equal bilaterally. No accessory muscle use. ABDOMEN/GI: Abdomen soft, non-tender. Fundus: [-] GENITOURINARY: External Genitalia: intact and normal in appearance Cervix: [-] Dilatation: [-] Effacement: [-] Station: [-] Presentation: [-] Membranes: [-] Uterine Contractions: none FHT's: Category: 1 Baseline: [-] Reactive: [-] Variability: [-] Decels: [-] EXTREMITIES: No cyanosis or edema, non-tender, without signs of DVT. Assessment and Plan Problem List: (1) 30 weeks gestation of ICD Codes: Z3A.30 - 30 weeks gestation of (2) Hypertension affecting in third trimester ICD Codes: O16.3 - Unspecified maternal hypertension, third trimester (3) Intrauterine growth restriction (IUGR) affecting care of mother, third trimester, single gestation ICD Codes: O36.5930 - Maternal care for other known or suspected poor growth, third trimester, not applicable or unspecified Plan: patient BP controlled on 2 meds and on bedrest, DC home on bedrest no preeclampsia at this time. Needs 2x weekly testing on monday Micah Damico MD Jun 14, 2017 20:05
--- NOTE | 2017-06-14 20:07 | HHI.DCPOC ---
Discharge Care Plan Diagnosis: (1) 30 weeks gestation of (2) Hypertension affecting in third trimester (3) Intrauterine growth restriction (IUGR) affecting care of mother, third trimester, single gestation Report Symptoms to Your Doctor -Temperature above 100.5 degrees -Redness, of incision or excessive or foul smelling drainage -Unusual pain or calf pain -Increased vaginal bleeding -Painful or difficulty urinating -Feelings of extreme sadness or anxiety after 2 weeks Goals to Promote Your Health * To prevent worsening of your condition and complications * To maintain your health at the optimal level Directions to Meet Your Goals Take your medications as prescribed Follow your dietary instruction Follow activity as directed Ensure plenty of rest for recovery Drink fluids for hydration Keep your appointments as scheduled Take your immunizations and boosters as scheduled If your symptoms worsen call your PCP, if no PCP go to Urgent Care Center or Emergency Room Smoking is Dangerous to Your Health. Avoid second hand smoke Call the 24-hour crisis hotline for domestic abuse at Micah Damico MD Jun 14, 2017 20:07
--- NOTE | 2017-06-14 20:09 | HHI.DS ---
Admission Date Jun 13, 2017 at 15:24 Discharge Date: Jun 14, 2017 Admitting Diagnosis Diagnosis: (1) Intrauterine growth restriction (IUGR) affecting care of mother, third trimester, single gestation ICD Codes: O36.5930 - Maternal care for other known or suspected poor growth, third trimester, not applicable or unspecified Brief History 27 yo 30 6/7 weeks here with hypertension and IUGR for past 3-4 weeks. She had preeclampsia work up 05/30 and now is in for preeclampsia work up Hospital Course no preeclampsia ok to dc home close testing Pt Condition on Discharge: Good Discharge Disposition: Discharge Home Discharge Instructions Diet Instructions: As Tolerated, No Restrictions Activities You Can Perform: Continue Bedrest Follow up Referrals: SURVEY ANALYST - 1 Week @ [facility] with Micah Damico MD Continued Medications: Escitalopram (Lexapro) 10 Mg Tab 10 MG PO DAILY, #30 TAB 0 Refills Labetalol (Labetalol) 200 Mg Tab 200 MG PO BID for Blood Pressure Management, TAB 0 Refills Nifedipine ER 24 HR (Procardia XL) 60 Mg Tab 60 MG PO DAILY, #30 TAB 0 Refills Pantoprazole (Pantoprazole) 40 Mg Tab 40 MG PO DAILY for Reflux, #30 TAB 0 Refills Without A Vit W/ Fe F (Prenata 29-1 mg) 29 Mg Iron-1 Mg Chw DAILY Micah Damico MD Jun 14, 2017 20:09
== END 2017-06-14 20:26 | disposition home or self-care (01) ==
LOC: H2EA 15:24
PROVIDERS: ADMIT Obstetrics & Gynecology; ATTEND Obstetrics & Gynecology
DX: O16.3 Unspecified maternal hypertension, third trimester (principal); Z3A.30 30 weeks gestation of pregnancy; O36.5930 Maternal care for other known or suspected poor fetal growth, third trimester, not applicable or unspecified; O99.343 Other mental disorders complicating pregnancy, third trimester; F41.9 Anxiety disorder, unspecified
CPT/HCPCS: 59025; 80076; 81001; 84157; 85025; G0378

== ENCOUNTER 2017-06-23 12:08 | Observation (INO) | payer BC ==
[2017-06-23] VITALS (78 sets, daily range): BP systolic 138–150; BP diastolic 74–107; PULSE 72–97; RESP 18; TEMP 98–98.3
[~2017-06-23 12:08] MED LIST changes: -ASPI81CH6 CHEW
[2017-06-23 12:46] LABS: HEMATOCRIT 37.2 % (35.0-46.0); MEAN CELL VOLUME 95.6 FL (80.0-100.0); MEAN CORPUSCULAR HEMOGLOBIN 33.4 PG (27.0-34.0); MEAN CORPUSCULAR HGB CONC 34.9 % (32.0-36.0); MEAN PLATELET VOLUME 8.2 FL (7.0-11.0); PLATELET COUNT 253 TH/MM3 (150-450); RED BLOOD COUNT 3.89 MIL/MM3 (4.00-5.30); RED CELL DISTRIBUTION WIDTH 12.8 % (11.6-17.2); WHITE BLOOD COUNT 12.3 TH/MM3 (4.0-11.0)
[2017-06-23 13:12] LABS: AST (GOT) 24 U/L (15-37); BICARBONATE 22.6 MEQ/L (21.0-32.0); BLOOD UREA NITROGEN 6 MG/DL (7-18); CALCIUM 8.9 MG/DL (8.5-10.1); CHLORIDE 105 MEQ/L (98-107); CREATININE 0.44 MG/DL (0.50-1.00); GLOMERULAR FILTRATION RATE 169 ML/MIN (>89); GLUCOSE,RANDOM 80 MG/DL (74-106); SODIUM (NA) 136 MEQ/L (136-145)
[2017-06-23 13:13] LABS: ALT (GPT) 40 U/L (10-53)
[2017-06-23 13:15] LABS: ALKALINE PHOSPHATASE 111 U/L (45-117); TOTAL BILIRUBIN ADULT 0.2 MG/DL (0.2-1.0)
--- NOTE | 2017-06-23 13:18 | PD ---
HPI Chief Complaint Sent from [facility] diagnostics for further evaluation Travel History International Travel<30 Days: No Contact w/Intl Traveler<30Days: No Known Affected Area: No History of Present Illness HPI 27-year-old 010, IUP at 32.2 new care complicated by history of chronic hypertension, IUGR with intermittent abnormal Dopplers, history of migraine headaches, anxiety/ depression, GERD The patient was sent from OB diagnostics for further evaluation for elevated blood pressures and abnormal Doppler testing. Of note, the patient was admitted for the first time on 05/30/17 for preeclampsia workup which was negative per report. The patient received betamethasone at that time. She was subsequently seen on 06/13/17 for a preeclampsia workup as well and reportedly was negative. She was seen in [facility] this morning and had elevated blood pressures, abnormal dopplers, and a variable deceleration, so was sent to the [facility] for further evaluation.The patient reports good movement. She denies any leaking of fluid or vaginal bleeding. She denies any painful contractions or cramping. The last weight on 06/20/17 was 1184 g which is less than 3rd percentile. The patient is undergoing twice weekly testing for IUGR and chronic hypertension. Weeks Gestation: 32 Para: 0 : 2 Miscarriage: 1 : 0 History Past Medical History Narrative Medical Chronic hypertension Anxiety Migraine headaches Obstetric History Obstetric History 010, SAB 1 Past Surgical History Surgical History: No Previous Surgery Family History Narrative Family History Hypertension Social History Alcohol Use: No Tobacco Use: No Substance Abuse: No Allergies-Medications (Allergen,Severity, Reaction): Coded Allergies: No Known Allergies (Verified Allergy, Unknown, 05/26/17) Home Meds Reported Medications Pantoprazole (Pantoprazole) 40 Mg Tab, 40 MG PO DAILY for Reflux, #30 TAB 0 Refills 05/26/17 Escitalopram (Lexapro) 10 Mg Tab, 10 MG PO DAILY, #30 TAB 0 Refills 05/26/17 Nifedipine ER 24 HR (Procardia XL) 60 Mg Tab, 60 MG PO DAILY, #30 TAB 0 Refills 05/26/17 Labetalol (Labetalol) 200 Mg Tab, 200 MG PO BID for Blood Pressure Management, TAB 0 Refills 05/26/17 Without A Vit W/ Fe F (Prenata 29-1 mg) 29 Mg Iron-1 Mg Chw, DAILY 05/26/17 Review of Systems Except as stated in HPI: all other systems reviewed are Neg Physical Exam Narrative GENERAL: Well-nourished, well-developed patient. SKIN: Warm and dry. HEAD: Normocephalic and atraumatic. EYES: No scleral icterus. No injection or drainage. ENT: No nasal drainage noted. Mucous membranes pink. Airway patent. NECK: Supple, trachea midline. No JVD. CARDIOVASCULAR: Regular rate and rhythm without murmurs, gallops, or rubs. RESPIRATORY: Breath sounds equal bilaterally. No accessory muscle use. BREASTS: Bilateral exam showed no masses , no retractions, no nipple discharge. ABDOMEN/GI: Abdomen soft, non-tender, bowel sounds present, no rebound, no guarding Gravid GENITOURINARY: Deferred FHT's: heart tones are in the 120s to 130s with moderate long-term variability, good accelerations, no decelerations noted. This is a reassuring heart rate tracing is category 1 and a reactive NST EXTREMITIES: No cyanosis or edema. BACK: Nontender without obvious deformity. NEUROLOGICAL/musculoskeletal: Awake and alert. Motor and sensory grossly within normal limits. Grossly normal Five out of 5 muscle strength in all muscle groups. Normal speech. DTRs are 2+ and equal bilaterally, there is no clonus noted Line psychiatric: Grossly normal memory and affect Data Data Orders Orders Vital Signs (Adult) .ON ADMISSION (06/23/17 12:33) ^ Labor Status (06/23/17 12:33) Urinalysis - C+S If Indicated (06/23/17 12:33) ^ Non Stress Test (06/23/17 12:33) Cbc No Diff, Includes Plts (06/23/17 12:33) Comprehensive Metabolic Panel (06/23/17 12:33) Uric Acid (06/23/17 12:33) Protein Creat Ratio, Random Ur (06/23/17 12:34) Labs Laboratory Tests Test 06/23/17 12:30 White Blood Count 12.3 Red Blood Count 3.89 Hemoglobin 13.0 Hematocrit 37.2 Mean Corpuscular Volume 95.6 Mean Corpuscular Hemoglobin 33.4 Mean Corpuscular Hemoglobin Concent 34.9 Red Cell Distribution Width 12.8 Platelet Count 253 Mean Platelet Volume 8.2 Blood Urea Nitrogen 6 Creatinine 0.44 Random Glucose 80 Albumin 3.0 Calcium Level 8.9 Uric Acid 1.9 Aspartate Amino Transf (AST/SGOT) 24 Sodium Level 136 Potassium Level 4.0 Chloride Level 105 Carbon Dioxide Level 22.6 Anion Gap 8 Estimat Glomerular Filtration Rate 169 MDM Plan Assessment/plan: 1. IUP at 32.2 2. Chronic hypertension: Patient initially with elevated blood pressures here however improved to the 140s-150s/90s on bedrest, will admit for observation as per Dr. Kenyon with bed rest and continuation of home medications of nifedipine and labetalol. Laboratory evaluation negative with normal platelet count, normal AST/ALT, normal uric acid, and PC ratio of 0.26. Will collect 24 hour urine to further evaluate for preeclampsia. 3. IUGR: EFW 1184 g which is less than 3rd percentile for gestational age, as above admitted for observation, will repeat betamethasone and obtain a NICU consultation as per Dr. Damico 4. Abnormal Dopplers today: Will admit for observation as above, continuous external monitoring. FHR currently reassuring. 5. well-being: Reassuring heart rate tracing today that is reassuring and appropriate for gestational age with a category 1 tracing and reactive NST. We'll continue EFM. 6. Anxiety/depression: Continue home meds 7. GERD: continue home meds Julia Sellers MD Jun 23, 2017 13:18
[2017-06-23] MEDS ORDERED: ACETAMINOPHEN 325 MG TAB PO PRN (13:30)
[2017-06-23] MEDS ORDERED: ONDANSETRON HCL 4 MG/2 ML VIAL IV PUSH PRN (13:30)
[2017-06-23] MEDS ORDERED: ONDANSETRON ODT 4 MG TAB PO PRN (13:30)
[2017-06-23] MEDS ORDERED: ALUMINUM/MAGNESIUM/SIMETH 30 ML CUP PO PRN (13:30)
[2017-06-23] MEDS ORDERED: SODIUM CHLORIDE 0.9% FLUSH 10 ML FLUSH IV FLUSH PRN (13:30)
[2017-06-23] MEDS ORDERED: ZOLPIDEM TARTRATE 5 MG TAB PO PRN (13:30)
[2017-06-23 14:18] LABS: BACTERIA, URINE RARE /hpf; BILIRUBIN, URINE NEG (NEG); BLOOD, URINE NEG (NEG); GLUCOSE,URINE NEG (NEG); KETONE, URINE NEG (NEG); NITRITE,URINE NEG (NEG); SQUAMOUS EPITHELIAL CELL URINE 2 /hpf (0-5); URINE COLOR LIGHT-YELLOW (YELLW/STRAW); URINE LEUKOCYTE ESTERASE MOD (NEG)
[2017-06-23] MEDS: BETAMETHASONE SOD PHOS/ACETATE SUSP 30 MG/5 ML VIAL IM SCH (14:30)
--- NOTE | 2017-06-23 15:39 | PD ---
History of Present Illness History of Present Illness NST report Indications: IUP at 32 weeks, chronic hypertension, IUGR, abnormal Dopplers, anxiety/depression, variable noted in OB diagnostics heart rate with the baselines in the 120s to 130s with moderate long-term variability, good accelerations, no decelerations noted. This reactive NST and category 1 heart rate tracing. FHR is reassuring and appropriate for gestational age. Follow-up: We'll admit for observation, continue EFM Final diagnosis: IUP at 32 weeks, chronic hypertension, IUGR, and normal Dopplers, anxiety/depression, variable noted in OB diagnostics, overall reassuring testing Julia Sellers MD Jun 23, 2017 15:38
--- NOTE | 2017-06-23 19:51 | HHI.PCNN ---
Addendum Remarks Consult Maternal Hx: 27 y/o, , female at 32.2 weeks gestation with diagnosis of chronic hypertension and severe IUGR. Mother admitted to [facility] on 06/23/17 secondary to elevated blood pressures/rule out pre-eclampsia, abnormal dopplers, variable decelerations, and severe IUGR for 24h observation. Mom has been admitted prior for pre-eclampsia rule outs as well as abnormal dopplers. Most recent Ultrasound on 06/23/17 confirms intrauterine with BPP 8/ 10. EDC of 08/16/17 . Estimated weight is 1194 grams and all biometries are less than 5th percentile. Maternal risk factors/complications: Chronic hypertension and severe growth restriction. Other maternal conditions: GERD, anxiety/depression, h/o migraines Maternal Management: 24h observation and then reassess. Goal to obtain 34 weeks gestation prior to delivery. Twice weekly testing secondary to CHTN and IUGR Maternal Labs: Blood type: A+, Rubella immune, RPR NR, Hepatitis B Neg, HIV Neg, GC Neg, CZ Neg, GBS unknown Maternal Medications: BMS 1st dose of rescue course given 06/23/17 (Initial course given ~1 month ago) Lexapro Procardia Labetolol Protonix PNV Ferrous Sulfate Social: Marital status: single Family Hx: First child Substance Abuse: Denies Discussion: PROBATION MANAGER met with mother to discuss delivery as well as severe growth restriction of fetus. Mom was informed that the neonatology team would attend the delivery of her baby to provide resuscitation as needed. Potential need for respiratory support to include CPAP with possible need for intubation &/or surfactant was explained. Benefits of steroid administration/rescue course were reviewed. Importance of providing breastmilk was discussed. Mom was concerned about not being able to provide breastmilk due to medication regimen but was reassured that her medications do not preclude providing breastmilk and that breastmilk is the best nutrition for her baby. Mom was encouraged to start pumping as soon as possible after delivery. NICU feeding practices to include gradual advancement of enteral feeds, need for use of feeding tube, and gradual transition to breast and bottle feeding as developmentally appropriate were discussed. Mom was also made aware of the need for IVF for the first few days of life as well as peripheral IVs. The potential need for a rule out course if IV antibiotics was discussed and mom was told that decision would be made at the time of delivery. Mom was educated about jaundice and the potential need for phototherapy, the need for an isolette/neutral thermal environment, and the possibility of the infant having apnea/bradycardia/ desaturation episodes. Criteria for NICU discharge were also discussed to include: all oral feeds, maintaining temperature outside of isolette, cessation of alarms, consistent weight gain, and attaining weight to meet bag sewer guidelines for car seat. Mom verbalized understanding. NICU policies were discussed. Mom was informed that daily multidisciplinary rounds occur at 10AM and parental involvement is strongly encouraged. / PROBATION MANAGER coverage with attending presence or rapid availability as needed was discussed. Mom was told about available resources such as , case management, and accessories repairer services. Mom verbalized understanding and expressed appreciation for the information. . Greater than 50% of the consultation time was spent with the patient. Yolanda Burns Jun 23, 2017 19:51
[2017-06-23] MEDS: LABETALOL HCL 200 MG TAB PO SCH (20:57)
[2017-06-23] MEDS: FERROUS SULFATE 325 MG (65 MG ELEMENTAL IRON) TAB PO SCH (20:57)
[2017-06-23] MEDS: SODIUM CHLORIDE 0.9% FLUSH 10 ML FLUSH IV FLUSH SCH (20:58)
[2017-06-24] VITALS (34 sets, daily range): BP systolic 137–157; BP diastolic 85–94; PULSE 71–97; RESP 16–18; TEMP 97.7
[2017-06-24] MEDS ORDERED: NIFEdipine 60 MG SUSTAINED RELEASE TAB PO SCH (09:00)
[2017-06-24] MEDS ORDERED: ESCITALOPRAM OXALATE 10 MG TAB PO SCH (09:00)
[2017-06-24] MEDS ORDERED: PANTOPRAZOLE SOD 40 MG DELAYED RELEASE TAB PO SCH (09:00)
[2017-06-24] MEDS ORDERED: MULTIVIT/MIN/PREN/FOL AC/IRON PRENATAL TAB PO SCH (09:00)
[2017-06-24] MEDS ORDERED: DOCUSATE SODIUM 100 MG CAP PO SCH (09:00)
[2017-06-24] MEDS: LABETALOL HCL 200 MG TAB PO SCH (09:06)
[2017-06-24] MEDS: FERROUS SULFATE 325 MG (65 MG ELEMENTAL IRON) TAB PO SCH (09:06)
[2017-06-24] MEDS: SODIUM CHLORIDE 0.9% FLUSH 10 ML FLUSH IV FLUSH SCH (09:08)
--- NOTE | 2017-06-24 10:18 | PD.OB.ANTE ---
Subjective Diagnosis: (1) 32 weeks gestation of Diagnosis: Principal (2) Hypertension affecting in third trimester Diagnosis: Principal (3) Intrauterine growth restriction (IUGR) affecting care of mother, third trimester, single gestation Diagnosis: Principal Antepartum ROS: Reports: Other (prolonged monitoring and steroids and preeclampsia work up) Objective Vital Signs Vital Signs Date Time Temp Pulse Resp B/P (MAP) Pulse Ox O2 Delivery O2 Flow Rate FiO2 06/24/17 07:25 97.7 16 06/24/17 07:21 73 141/94 (110) 06/24/17 07:10 87 06/24/17 07:05 79 06/24/17 07:00 76 06/24/17 04:00 18 06/24/17 03:55 80 06/24/17 03:50 78 06/24/17 03:45 75 06/24/17 03:40 75 06/24/17 03:35 83 06/24/17 03:30 76 06/24/17 03:25 76 06/24/17 03:20 71 06/24/17 03:20 76 157/94 (115) 06/24/17 03:15 92 06/24/17 03:05 88 06/24/17 03:00 89 06/23/17 23:32 73 138/74 (95) 06/23/17 23:32 98.1 18 06/23/17 23:30 79 06/23/17 23:25 79 06/23/17 23:20 96 06/23/17 23:15 80 06/23/17 23:10 87 06/23/17 23:05 83 06/23/17 23:00 77 06/23/17 19:53 98.0 18 06/23/17 19:53 79 150/89 (109) 06/23/17 19:50 79 06/23/17 19:45 80 06/23/17 19:40 82 06/23/17 19:35 81 06/23/17 19:30 79 06/23/17 19:25 81 06/23/17 19:20 82 06/23/17 19:15 80 06/23/17 19:10 83 06/23/17 19:00 83 06/23/17 18:30 83 06/23/17 18:25 79 06/23/17 18:20 80 06/23/17 18:15 78 06/23/17 18:10 87 06/23/17 18:05 79 06/23/17 18:00 81 06/23/17 17:55 83 06/23/17 17:50 81 06/23/17 17:45 78 18 17:40 81 147/93 (111) 06/23/17 17:40 98.3 18 06/23/17 17:40 73 06/23/17 17:35 79 06/23/17 17:30 80 06/23/17 17:25 78 06/23/17 17:20 85 06/23/17 17:15 82 06/23/17 17:10 83 06/23/17 17:05 80 06/23/17 17:00 77 06/23/17 16:55 83 06/23/17 16:50 78 06/23/17 16:45 76 06/23/17 16:35 83 06/23/17 16:30 81 06/23/17 16:25 82 06/23/17 16:20 84 06/23/17 16:15 83 06/23/17 16:10 92 06/23/17 16:05 87 06/23/17 16:00 81 06/23/17 15:55 89 06/23/17 15:50 84 06/23/17 15:45 83 06/23/17 15:40 92 06/23/17 15:35 84 06/23/17 15:30 95 06/23/17 15:25 92 06/23/17 15:20 97 06/23/17 15:15 82 06/23/17 15:10 93 06/23/17 15:05 90 06/23/17 15:00 79 06/23/17 14:55 79 06/23/17 14:50 75 06/23/17 14:45 76 06/23/17 14:40 76 06/23/17 14:35 77 06/23/17 14:30 77 06/23/17 14:26 98.3 06/23/17 14:25 72 06/23/17 14:24 18 06/23/17 14:23 72 142/94 (110) 06/23/17 14:20 73 06/23/17 14:00 75 148/107 (121) 06/23/17 13:45 88 144/103 (117) 06/23/17 13:30 81 147/101 (116) 06/23/17 13:16 79 150/98 (115) 06/23/17 13:00 77 141/97 (112) 06/23/17 12:45 76 145/105 (118) Lab & Micro Results Test 06/23/17 12:20 06/23/17 12:30 Urine Color LIGHT-YELLOW Urine Turbidity CLEAR Urine pH 7.0 Urine Specific [place] 1.007 Urine Protein NEG mg/dL Urine Glucose (UA) NEG mg/dL Urine Ketones NEG mg/dL Urine Occult Blood NEG Urine Nitrite NEG Urine Bilirubin NEG Urine Urobilinogen LESS THAN 2.0 MG/DL Urine Leukocyte Esterase MOD Urine RBC LESS THAN 1 /hpf Urine WBC 3 /hpf Urine Squamous Epithelial Cells 2 /hpf Urine Bacteria RARE /hpf Microscopic Urinalysis Comment CULT NOT INDICATED Urine Random Creatinine 27 MG/DL Urine Random Total Protein 7 MG/DL Urine Protein/Creatinine Ratio 0.26 White Blood Count 12.3 TH/MM3 Red Blood Count 3.89 MIL/MM3 Hemoglobin 13.0 GM/DL Hematocrit 37.2 % Mean Corpuscular Volume 95.6 FL Mean Corpuscular Hemoglobin 33.4 PG Mean Corpuscular Hemoglobin Concent 34.9 % Red Cell Distribution Width 12.8 % Platelet Count 253 TH/MM3 Mean Platelet Volume 8.2 FL Blood Urea Nitrogen 6 MG/DL Creatinine 0.44 MG/DL Random Glucose 80 MG/DL Total Protein 7.0 GM/DL Albumin 3.0 GM/DL Calcium Level 8.9 MG/DL Uric Acid 1.9 MG/DL Alkaline Phosphatase 111 U/L Aspartate Amino Transf (AST/SGOT) 24 U/L Alanine Aminotransferase (ALT/SGPT) 40 U/L Total Bilirubin 0.2 MG/DL Sodium Level 136 MEQ/L Potassium Level 4.0 MEQ/L Chloride Level 105 MEQ/L Carbon Dioxide Level 22.6 MEQ/L Anion Gap 8 MEQ/L Estimat Glomerular Filtration Rate 169 ML/MIN Physical Exam GENERAL: Well-nourished, well-developed patient. CARDIOVASCULAR: Regular rate and rhythm without murmurs, gallops, or rubs. RESPIRATORY: Breath sounds equal bilaterally. No accessory muscle use. ABDOMEN/GI: Abdomen soft, non-tender. Fundus: [-] GENITOURINARY: External Genitalia: intact and normal in appearance Cervix: [-] Dilatation: [-] Effacement: Station: [-] Presentation: vtx Membranes: intact Uterine Contractions: [-] FHT's: Category: 1 Baseline: [-] Reactive: [-] Variability: [-] Decels: [-] EXTREMITIES: No cyanosis or edema, non-tender, without signs of DVT. Assessment and Plan Problem List: (1) 32 weeks gestation of ICD Codes: Z3A.32 - 32 weeks gestation of (2) Intrauterine growth restriction (IUGR) affecting care of mother, third trimester, single gestation ICD Codes: O36.5930 - Maternal care for other known or suspected poor growth, third trimester, not applicable or unspecified (3) Hypertension affecting in third trimester ICD Codes: O16.3 - Unspecified maternal hypertension, third trimester Assessment and Plan steroids and increase procardia Micah Damico MD Jun 24, 2017 10:18
[2017-06-24] MEDS ORDERED: NIFEdipine 30 MG SUSTAINED RELEASE TAB PO ONE (11:00)
[2017-06-24] MEDS: BETAMETHASONE SOD PHOS/ACETATE SUSP 30 MG/5 ML VIAL IM SCH (14:46)
--- NOTE | 2017-06-24 14:46 | HHI.DCPOC ---
Discharge Care Plan Diagnosis: (1) 32 weeks gestation of (2) Intrauterine growth restriction (IUGR) affecting care of mother, third trimester, single gestation (3) Hypertension affecting in third trimester Report Symptoms to Your Doctor -Temperature above 100.5 degrees -Redness, of incision or excessive or foul smelling drainage -Unusual pain or calf pain -Increased vaginal bleeding -Painful or difficulty urinating -Feelings of extreme sadness or anxiety after 2 weeks Goals to Promote Your Health * To prevent worsening of your condition and complications * To maintain your health at the optimal level Directions to Meet Your Goals Take your medications as prescribed Follow your dietary instruction Follow activity as directed Ensure plenty of rest for recovery Drink fluids for hydration Keep your appointments as scheduled Take your immunizations and boosters as scheduled If your symptoms worsen call your PCP, if no PCP go to Urgent Care Center or Emergency Room Smoking is Dangerous to Your Health. Avoid second hand smoke Call the 24-hour crisis hotline for domestic abuse at Micah Damico MD Jun 24, 2017 14:46
[2017-06-24] MEDS ORDERED: PROC90TA PO (14:49)
--- NOTE | 2017-06-24 14:51 | HHI.DS ---
Admission Date Jun 23, 2017 at 13:43 Admitting Diagnosis Diagnosis: (1) 32 weeks gestation of ICD Codes: Z3A.32 - 32 weeks gestation of (2) Intrauterine growth restriction (IUGR) affecting care of mother, third trimester, single gestation Diagnosis: Principal ICD Codes: O36.5930 - Maternal care for other known or suspected poor growth, third trimester, not applicable or unspecified (3) Hypertension affecting in third trimester ICD Codes: O16.3 - Unspecified maternal hypertension, third trimester Brief History 27-year-old 010, IUP at 32.2 new care complicated by history of chronic hypertension, IUGR with intermittent abnormal Dopplers, history of migraine headaches, anxiety/ depression, GERD The patient was sent from [facility] for further evaluation for elevated blood pressures and abnormal Doppler testing. Of note, the patient was admitted for the first time on 05/30/17 for preeclampsia workup which was negative per report. The patient received betamethasone at that time. She was subsequently seen on 06/13/17 for a preeclampsia workup as well and reportedly was negative. She was seen in [facility] this morning and had elevated blood pressures, abnormal dopplers, and a variable deceleration, so was sent to the [facility] for further evaluation.The patient reports good movement. She denies any leaking of fluid or vaginal bleeding. She denies any painful contractions or cramping. The last weight on 06/20/17 was 1184 g which is less than 3rd percentile. The patient is undergoing twice weekly testing for IUGR and chronic hypertension. Hospital Course patient labs normal and BP better on procardia 90 mg and stay on bedrest and testing monday Pt Condition on Discharge: Good Discharge Disposition: Discharge Home Discharge Instructions Diet Instructions: As Tolerated, No Restrictions Activities You Can Perform: Continue Bedrest Follow up Referrals: FILM READER - 2 Weeks @ [facility] with Micah Damico MD New Medications: Nifedipine ER 24 HR (Procardia XL) 90 Mg Tab 90 MG PO DAILY PRN for SBP> OR = 180, DBP> OR = 100, #30 TAB 2 Refills Continued Medications: Escitalopram (Lexapro) 10 Mg Tab 10 MG PO DAILY, #30 TAB 0 Refills Labetalol (Labetalol) 200 Mg Tab 200 MG PO BID for Blood Pressure Management, TAB 0 Refills Pantoprazole (Pantoprazole) 40 Mg Tab 40 MG PO DAILY for Reflux, #30 TAB 0 Refills Without A Vit W/ Fe F (Prenata 29-1 mg) 29 Mg Iron-1 Mg Chw DAILY Discontinued Medications: Nifedipine ER 24 HR (Procardia XL) 60 Mg Tab 60 MG PO DAILY, #30 TAB 0 Refills Micah Damico MD Jun 24, 2017 14:50
[2017-06-25] MEDS ORDERED: NIFEdipine 90 MG SUSTAINED RELEASE TAB PO SCH (09:00)
== END 2017-06-24 15:38 | disposition home or self-care (01) ==
LOC: HOBED 12:08 → H2EB 13:43
PROVIDERS: ADMIT Obstetrics & Gynecology; ATTEND Obstetrics & Gynecology
DX: O16.3 Unspecified maternal hypertension, third trimester (principal); O36.5930 Maternal care for other known or suspected poor fetal growth, third trimester, not applicable or unspecified; K21.9 Gastro-esophageal reflux disease without esophagitis; O99.62 Diseases of the digestive system complicating childbirth; F41.9 Anxiety disorder, unspecified; G43.909 Migraine, unspecified, not intractable, without status migrainosus; O28.3 Abnormal ultrasonic finding on antenatal screening of mother; Z3A.32 32 weeks gestation of pregnancy
CPT/HCPCS: 59025; 80053; 81001; 82570; 82575; 84156; 84157; 84550; 85027; 96372; 99285; G0378; J0702

== ENCOUNTER 2017-06-30 13:26 | Emergency (ER) | payer BC ==
[~2017-06-30 13:26] MED LIST changes: -NIFE1TAB86 PO; +PROC90TA PO
--- NOTE | 2017-06-30 14:49 | HHI.DCPOC ---
Discharge Care Plan Diagnosis: (1) Intrauterine growth restriction (IUGR) affecting care of mother, third trimester, single gestation (2) Hypertension affecting in third trimester Report Symptoms to Your Doctor -Temperature above 100.5 degrees -Redness, of incision or excessive or foul smelling drainage -Unusual pain or calf pain -Increased vaginal bleeding -Painful or difficulty urinating -Feelings of extreme sadness or anxiety after 2 weeks Goals to Promote Your Health * To prevent worsening of your condition and complications * To maintain your health at the optimal level Directions to Meet Your Goals Take your medications as prescribed Follow your dietary instruction Follow activity as directed Ensure plenty of rest for recovery Drink fluids for hydration Keep your appointments as scheduled Take your immunizations and boosters as scheduled If your symptoms worsen call your PCP, if no PCP go to Urgent Care Center or Emergency Room Smoking is Dangerous to Your Health. Avoid second hand smoke Call the 24-hour crisis hotline for domestic abuse at Micah Damico MD Jun 30, 2017 14:49
--- NOTE | 2017-06-30 14:58 | PD ---
HPI Chief Complaint NST for non reactive nst Date Seen: Jun 30, 2017 Travel History International Travel<30 Days: No Contact w/Intl Traveler<30Days: No Known Affected Area: No History of Present Illness HPI 27 yo patient has testing 2x per week she had non reactive NST in office and ate breakfast and comes to hospital for prolonged monitoring Weeks Gestation: 32 Para: 0 : 1 History Past Medical History Medical History: Denies Significant Hx Past Surgical History Surgical History: No Previous Surgery Social History Alcohol Use: No Tobacco Use: No Substance Abuse: No Allergies-Medications (Allergen,Severity, Reaction): Coded Allergies: No Known Allergies (Verified Allergy, Unknown, 05/26/17) Home Meds Active Scripts Nifedipine ER 24 HR (Procardia XL) 90 Mg Tab, 90 MG PO DAILY Y for SBP> OR = 180 , DBP> OR = 100, #30 TAB 2 Refills Prov:Micah Damico MD 06/24/17 Reported Medications Pantoprazole (Pantoprazole) 40 Mg Tab, 40 MG PO DAILY for Reflux, #30 TAB 0 Refills 05/26/17 Escitalopram (Lexapro) 10 Mg Tab, 10 MG PO DAILY, #30 TAB 0 Refills 05/26/17 Labetalol (Labetalol) 200 Mg Tab, 200 MG PO BID for Blood Pressure Management, TAB 0 Refills 05/26/17 Without A Vit W/ Fe F (Prenata 29-1 mg) 29 Mg Iron-1 Mg Chw, DAILY 05/26/17 Discontinued Reported Medications Nifedipine ER 24 HR (Procardia XL) 60 Mg Tab, 60 MG PO DAILY, #30 TAB 0 Refills 05/26/17 Review of Systems Except as stated in HPI: all other systems reviewed are Neg Physical Exam Narrative GENERAL: Well-nourished, well-developed patient. SKIN: Warm and dry. HEAD: Normocephalic and atraumatic. EYES: No scleral icterus. No injection or drainage. ENT: No nasal drainage noted. Mucous membranes pink. Airway patent. NECK: Supple, trachea midline. No JVD. CARDIOVASCULAR: Regular rate and rhythm without murmurs, gallops, or rubs. RESPIRATORY: Breath sounds equal bilaterally. No accessory muscle use. BREASTS: Bilateral exam showed no masses , no retractions, no nipple discharge. ABDOMEN/GI: Abdomen soft, non-tender, bowel sounds present, no rebound, no guarding Gravid to [-] weeks size Fundal Height: [-] GENITOURINARY: External Genitalia: intact and normal in appearance BUS glands: [-] Cervix: [-] Dilatation: [-] Effacement: [-] Station: [-] Presentation: [-] Membranes: [intact or ruptured] Uterine Contractions: [-] FHT's: Category: 1 Baseline: [-] Reactive: yes Variability: [-] Decels: [-] EXTREMITIES: No cyanosis or edema. BACK: Nontender without obvious deformity. No CVA tenderness. NEUROLOGICAL: Awake and alert. Motor and sensory grossly within normal limits. Five out of 5 muscle strength in all muscle groups. Normal speech. Data Data Vital Signs Reviewed: Yes Orders Orders Vital Signs (Adult) .ON ADMISSION (06/30/17 14:01) ^ Non Stress Test (06/30/17 14:01) Attending Discharge Order (06/30/17 ) MDM Medical Record Reviewed: Yes Disposition: DISCHARGE HOME Condition: Good Patient Instructions: General Instructions Departure Forms: Tests/Procedures Micah Damico MD Jun 30, 2017 14:58
--- NOTE | 2017-06-30 15:00 | PD ---
HPI Travel History International Travel<30 Days: No Contact w/Intl Traveler<30Days: No Known Affected Area: No History of Present Illness HPI 27 yo patient has testing 2x per week she had non reactive NST in office and ate breakfast and comes to hospital for prolonged monitoring Allergies-Medications (Allergen,Severity, Reaction): Coded Allergies: No Known Allergies (Verified Allergy, Unknown, 05/26/17) Home Meds Active Scripts Nifedipine ER 24 HR (Procardia XL) 90 Mg Tab, 90 MG PO DAILY Y for SBP> OR = 180 , DBP> OR = 100, #30 TAB 2 Refills Prov:Micah Damico MD 06/24/17 Reported Medications Pantoprazole (Pantoprazole) 40 Mg Tab, 40 MG PO DAILY for Reflux, #30 TAB 0 Refills 05/26/17 Escitalopram (Lexapro) 10 Mg Tab, 10 MG PO DAILY, #30 TAB 0 Refills 05/26/17 Labetalol (Labetalol) 200 Mg Tab, 200 MG PO BID for Blood Pressure Management, TAB 0 Refills 05/26/17 Without A Vit W/ Fe F ([place] 29-1 mg) 29 Mg Iron-1 Mg Chw, DAILY 05/26/17 Discontinued Reported Medications Nifedipine ER 24 HR (Procardia XL) 60 Mg Tab, 60 MG PO DAILY, #30 TAB 0 Refills 05/26/17 Physical Exam Narrative GENERAL: Well-nourished, well-developed patient. SKIN: Warm and dry. HEAD: Normocephalic and atraumatic. EYES: No scleral icterus. No injection or drainage. ENT: No nasal drainage noted. Mucous membranes pink. Airway patent. NECK: Supple, trachea midline. No JVD. CARDIOVASCULAR: Regular rate and rhythm without murmurs, gallops, or rubs. RESPIRATORY: Breath sounds equal bilaterally. No accessory muscle use. BREASTS: Bilateral exam showed no masses , no retractions, no nipple discharge. ABDOMEN/GI: Abdomen soft, non-tender, bowel sounds present, no rebound, no guarding Gravid to [-] weeks size Fundal Height: [-] GENITOURINARY: External Genitalia: intact and normal in appearance BUS glands: [-] Cervix: [-] Dilatation: [-] Effacement: [-] Station: [-] Presentation: [-] Membranes: [intact or ruptured] Uterine Contractions: [-] FHT's: Category: [-] Baseline: [-] Reactive: [-] Variability: [-] Decels: [-] EXTREMITIES: No cyanosis or edema. BACK: Nontender without obvious deformity. No CVA tenderness. NEUROLOGICAL: Awake and alert. Motor and sensory grossly within normal limits. Five out of 5 muscle strength in all muscle groups. Normal speech. Data Data Orders Orders Vital Signs (Adult) .ON ADMISSION (06/30/17 14:01) ^ Non Stress Test (06/30/17 14:01) Attending Discharge Order (06/30/17 ) MDM Diagnosis Diagnosis: Primary Impression: Hypertension affecting in third trimester Additional Impression: Intrauterine growth restriction (IUGR) affecting care of mother, third trimester, single gestation Disposition: 01 DISCHARGE HOME Condition: Good Patient Instructions: General Instructions, Movement (ED), Abdominal Pain in (ED) Departure Forms: Tests/Procedures Micah Damico MD Jun 30, 2017 15:00
== END 2017-06-30 15:04 | disposition home or self-care (01) ==
LOC: HOBED 13:26
DX: O16.3 Unspecified maternal hypertension, third trimester (principal); O36.5930 Maternal care for other known or suspected poor fetal growth, third trimester, not applicable or unspecified; Z3A.32 32 weeks gestation of pregnancy
CPT/HCPCS: 59025

== ENCOUNTER 2017-07-04 14:45 | Inpatient (IN) | payer BC ==
[2017-07-04] VITALS (64 sets, daily range): BP systolic 140–147; BP diastolic 92–96; PULSE 63–90; RESP 16–18; TEMP 97.5–98.8
[~2017-07-04] VITALS: Ht 157.5 cm; Wt 83.0 kg
[2017-07-04] MEDS ORDERED: LACTATED RINGER'S 1000 ML INJ 1,000 ML IV PRN (15:38)
[2017-07-04] MEDS ORDERED: LIDOCAINE HCL 1% 50 ML VIAL INFIL PRN (15:45)
[2017-07-04] MEDS: LACTATED RINGER'S 1000 ML INJ 1,000 ML IV SCH ×2 (15:45→19:54)
[2017-07-04] MEDS ORDERED: CITRIC ACID-SODIUM CITRATE LIQ 30 ML UDC PO SCH (15:45)
[2017-07-04] MEDS ORDERED: MINERAL OIL 10 ML VIAL TOPICAL PRN (15:45)
[2017-07-04] MEDS ORDERED: LIDOCAINE HCL 1% 50 ML VIAL I-DERMAL PRN (15:45)
[2017-07-04] MEDS ORDERED: SODIUM CHLORID 0.9% 500 ML INJ 500 ML IV PRN (15:45)
[2017-07-04] MEDS ORDERED: OXYTOCIN 30 UNITS-500ML PREMIX 500 ML IV ONE (15:45)
[2017-07-04 15:58] LABS: BILIRUBIN, URINE NEG (NEG); BLOOD, URINE NEG (NEG); GLUCOSE,URINE NEG (NEG); KETONE, URINE NEG (NEG); NITRITE,URINE NEG (NEG); PH, URINE 6.5 (5.0-8.5); SQUAMOUS EPITHELIAL CELL URINE 4 /hpf (0-5); URINE COLOR YELLOW (YELLW/STRAW); URINE LEUKOCYTE ESTERASE SMALL (NEG)
[2017-07-04] MEDS ORDERED: SODIUM CHLOR 0.9% 1000 ML INJ 1,000 ML IV PRN (15:58)
[2017-07-04] MEDS ORDERED: SODIUM CHLORIDE 0.9% FLUSH 10 ML FLUSH IV FLUSH PRN (16:00)
[2017-07-04] MEDS ORDERED: PENICILLIN G POTASSIUM INJ 5,000,000 UNITS in SODIUM CHLORIDE 0.9% INJ 100 ML IV ONE (16:00)
[2017-07-04 16:04] LABS: BASOPHIL % 0.2 % (0.0-2.0); EOSINOPHIL # 0.1 TH/MM3 (0-0.4); EOSINOPHIL % 0.3 % (0.0-4.0); HEMATOCRIT 39.7 % (35.0-46.0); HEMOGLOBIN 13.8 GM/DL (11.6-15.3); LYMPH % 23.9 % (9.0-44.0); LYMPHOCYTE # 4.2 TH/MM3 (1.0-4.8); MEAN CELL VOLUME 96.3 FL (80.0-100.0); MEAN CORPUSCULAR HEMOGLOBIN 33.5 PG (27.0-34.0); MEAN CORPUSCULAR HGB CONC 34.8 % (32.0-36.0); MEAN PLATELET VOLUME 8.6 FL (7.0-11.0); MONO % 6.6 % (0.0-8.0); MONOCYTE # 1.2 TH/MM3 (0-0.9); PLATELET COUNT 284 TH/MM3 (150-450); RED BLOOD COUNT 4.13 MIL/MM3 (4.00-5.30); RED CELL DISTRIBUTION WIDTH 12.6 % (11.6-17.2); WHITE BLOOD COUNT 17.4 TH/MM3 (4.0-11.0)
--- NOTE | 2017-07-04 17:58 | HHI.HP ---
HPI Chief Complaint Induction for oligo Date Seen: Jul 04, 2017 Time Seen: 17:00 Travel History International Travel<30 Days: No Contact w/Intl Traveler<30Days: No Known Affected Area: No History of Present Illness HPI 27 yo wf who has severe IUGR and testing 2x per week. she now has oligo and is being induced Weeks Gestation: 34 Para: 0 : 2 History Past Medical History Narrative Medical hypertension, IUGR Obstetric History Obstetric History SAB with this 2 meds for HTN Past Surgical History Narrative Surgical none Family History Family History: Negative Social History Alcohol Use: No Tobacco Use: No Substance Abuse: No Allergies-Medications (Allergen,Severity, Reaction): Coded Allergies: No Known Allergies (Verified Allergy, Unknown, 05/26/17) Home Meds Active Scripts Nifedipine ER 24 HR (Procardia XL) 90 Mg Tab, 90 MG PO DAILY Y for SBP> OR = 180 , DBP> OR = 100, #30 TAB 2 Refills Prov:Micah Damico MD 06/24/17 Reported Medications Pantoprazole (Pantoprazole) 40 Mg Tab, 40 MG PO DAILY for Reflux, #30 TAB 0 Refills 05/26/17 Escitalopram (Lexapro) 10 Mg Tab, 10 MG PO DAILY, #30 TAB 0 Refills 05/26/17 Labetalol (Labetalol) 200 Mg Tab, 200 MG PO BID for Blood Pressure Management, TAB 0 Refills 05/26/17 Without A Vit W/ Fe F ([place] 29-1 mg) 29 Mg Iron-1 Mg Chw, DAILY 05/26/17 Review of Systems Except as stated in HPI: all other systems reviewed are Neg Physical Exam Vital Signs Date Time Temp Pulse Resp B/P (MAP) Pulse Ox O2 Delivery O2 Flow Rate FiO2 07/04/17 16:29 16 07/04/17 16:25 76 07/04/17 16:20 75 07/04/17 16:18 74 07/04/17 16:18 141/92 (108) 07/04/17 16:15 98.5 87 Narrative GENERAL: Well-nourished, well-developed patient. SKIN: Warm and dry. HEAD: Normocephalic and atraumatic. EYES: No scleral icterus. No injection or drainage. ENT: No nasal drainage noted. Mucous membranes pink. Airway patent. NECK: Supple, trachea midline. No JVD. CARDIOVASCULAR: Regular rate and rhythm without murmurs, gallops, or rubs. RESPIRATORY: Breath sounds equal bilaterally. No accessory muscle use. BREASTS: Bilateral exam showed no masses , no retractions, no nipple discharge. ABDOMEN/GI: Abdomen soft, non-tender, bowel sounds present, no rebound, no guarding Gravid to [-] weeks size Fundal Height: [-] GENITOURINARY: External Genitalia: intact and normal in appearance BUS glands: [-] Cervix: [-] Dilatation: ft Effacement: 50 Station: vtx Presentation: vtx Membranes:intact Uterine Contractions: [-] FHT's: Category: 1 Baseline: [-] Reactive: [-] Variability: [-] Decels: [-] EXTREMITIES: No cyanosis or edema. BACK: Nontender without obvious deformity. No CVA tenderness. NEUROLOGICAL: Awake and alert. Motor and sensory grossly within normal limits. Five out of 5 muscle strength in all muscle groups. Normal speech. Caprini VTE Risk Assessment Caprini VTE Risk Assessment: No/Low Risk (score <= 1) Caprini Risk Assessment Model Point Value = 1 Point Value = 2 Point Value = 3 Point Value = 5 Age 41-60 Minor surgery BMI > 25 kg/m2 Swollen legs Varicose veins or History of unexplained or recurrent spontaneous Oral contraceptives or hormone replacement Sepsis (< 1 month) Serious lung disease, including pneumonia (< 1 month) Abnormal pulmonary function Acute myocardial infarction Congestive heart failure (< 1 month) History of inflammatory bowel disease Medical patient at bed rest Age 61-74 Arthroscopic surgery Major open surgery (> 45 min) Laparoscopic surgery (> 45 min) Malignancy Confined to bed (> 72 hours) Immobilizing plaster cast Central venous access Age >= 75 History of VTE Family history of VTE Factor V Leiden Prothrombin [id number] Lupus anticoagulant Anticardiolipin antibodies Elevated serum homocysteine Heparin-induced thrombocytopenia Other congenital or acquired thrombophilia Stroke (< 1 month) Elective arthroplasty Hip, pelvis, or leg fracture Acute spinal cord injury (< 1 month) Prophylaxis Regimen Total Risk Factor Score Risk Level Prophylaxis Regimen 0-1 Low Early ambulation 2 Moderate Order ONE of the following: *Sequential Compression Device (SCD) *Heparin 5000 units SQ BID 3-4 Higher Order ONE of the following medications: *Heparin 5000 units SQ TID *Enoxaparin/Lovenox 40 mg SQ daily (WT < 150 kg, CrCl > 30 mL/min) *Enoxaparin/Lovenox 30 mg SQ daily (WT < 150 kg, CrCl > 10-29 mL/min) *Enoxaparin/Lovenox 30 mg SQ BID (WT < 150 kg, CrCl > 30 mL/min) AND/OR *Sequential Compression Device (SCD) 5 or more Highest Order ONE of the following medications: *Heparin 5000 units SQ TID (Preferred with Epidurals) *Enoxaparin/Lovenox 40 mg SQ daily (WT < 150 kg, CrCl > 30 mL/min) *Enoxaparin/Lovenox 30 mg SQ daily (WT < 150 kg, CrCl > 10-29 mL/min) *Enoxaparin/Lovenox 30 mg SQ BID (WT < 150 kg, CrCl > 30 mL/min) AND *Sequential Compression Device (SCD) Data Data Vital Signs Reviewed: Yes Orders Orders Ob (2e) Additional Admit Info (07/04/17 14:54) Admit To Inpatient (07/04/17 ) Code Status (07/04/17 15:38) Vital Signs (Adult) .Per protocol (07/04/17 15:38) Heart (07/04/17 15:38) Amnioinfusion (07/04/17 15:38) Urinary Catheter Management .ONCE (07/04/17 15:38) Lactated Ringer's 1000 Ml Inj (Lr 1000 M (07/04/17 15:38) Lactated Ringer's 1000 Ml Inj (Lr 1000 M (07/04/17 15:38) Sodium Chlorid 0.9% 500 Ml Inj (Ns 500 M (07/04/17 15:45) Sodium Chlor 0.9% 1000 Ml Inj (Ns 1000 M (07/04/17 15:58) Lidocaine 1% Inj (50 Ml) (Xylocaine 1% I (07/04/17 15:45) Citric Acid-Sodium Citrate Liq (Bicitra (07/04/17 15:45) Fentanyl Inj (Fentanyl Inj) (07/04/17 15:45) Fentanyl Inj (Fentanyl Inj) (07/04/17 15:45) Penicillin G Potassium Inj (Pfizerpen-G (07/04/17 16:00) Penicillin G Potassium Inj (Pfizerpen-G (07/04/17 20:00) Complete Blood Count With Diff (07/04/17 15:38) Hold Clot (07/04/17 15:38) Abo/Rh Blood Type (07/04/17 15:38) Urinalysis - C+S If Indicated (07/04/17 15:38) Drug Screen, Random Urine (07/04/17 15:38) Ob/Psych Drug Screen, Urine (07/04/17 15:38) Resp Oxygen Non Rebreathe Mask (07/04/17 ) ^ Epidural / Intrathecal Infus (07/04/17 15:38) Oxytocin 30 Units-500ml Premix (Pitocin (07/04/17 15:45) Lidocaine 1% Inj (50 Ml) (Xylocaine 1% I (07/04/17 15:45) Light Mineral Oil (Muri-Lube Oil) (07/04/17 15:45) Inpatient Certification (07/04/17 ) Specimen To Be Collected PRN (07/04/17 15:38) Specimen To Be Collected PRN (07/04/17 15:38) ^ Labor Induction (07/04/17 15:51) ^ Vaginal Insert (07/04/17 15:51) ^ Vaginal Lavage (07/04/17 15:51) Heart (07/04/17 15:51) Sodium Chloride 0.9% Flush (Ns Flush) (07/04/17 21:00) Sodium Chloride 0.9% Flush (Ns Flush) (07/04/17 16:00) Escitalopram (Lexapro) (07/04/17 18:00) Labetalol (Trandate) (07/04/17 21:00) Nifedipine Sr (Procardia Xl) (07/04/17 18:00) Pantoprazole (Protonix) (07/04/17 18:00) Dinoprostone Vag Insert (Cervidil Vag In (07/04/17 18:00) Labs Laboratory Tests Test 07/04/17 15:15 White Blood Count 17.4 Red Blood Count 4.13 Hemoglobin 13.8 Hematocrit 39.7 Mean Corpuscular Volume 96.3 Mean Corpuscular Hemoglobin 33.5 Mean Corpuscular Hemoglobin Concent 34.8 Red Cell Distribution Width 12.6 Platelet Count 284 Mean Platelet Volume 8.6 Neutrophils (%) (Auto) 69.0 Lymphocytes (%) (Auto) 23.9 Monocytes (%) (Auto) 6.6 Eosinophils (%) (Auto) 0.3 Basophils (%) (Auto) 0.2 Neutrophils # (Auto) 12.0 Lymphocytes # (Auto) 4.2 Monocytes # (Auto) 1.2 Eosinophils # (Auto) 0.1 Basophils # (Auto) 0.0 CBC Comment DIFF FINAL Differential Comment Urine Color YELLOW Urine Turbidity CLEAR Urine pH 6.5 Urine Specific [place] 1.010 Urine Protein NEG Urine Glucose (UA) NEG Urine Ketones NEG Urine Occult Blood NEG Urine Nitrite NEG Urine Bilirubin NEG Urine Urobilinogen LESS THAN 2.0 Urine Leukocyte Esterase SMALL Urine RBC LESS THAN 1 Urine WBC 2 Urine Squamous Epithelial Cells 4 Microscopic Urinalysis Comment CULT NOT INDICATED Urine Opiates Screen NEG Urine Barbiturates Screen NEG Urine Amphetamines Screen NEG Urine Benzodiazepines Screen NEG Urine Cocaine Screen NEG Urine Cannabinoids Screen NEG Assessment/Plan Problem List: (1) 34 weeks gestation of ICD Codes: Z3A.34 - 34 weeks gestation of (2) Hypertension affecting in third trimester ICD Codes: O16.3 - Unspecified maternal hypertension, third trimester (3) Intrauterine growth restriction (IUGR) affecting care of mother, third trimester, single gestation ICD Codes: O36.5930 - Maternal care for other known or suspected poor growth, third trimester, not applicable or unspecified Assessment and Plan admit for induction for oligo and IUGR Micah Damico MD Jul 04, 2017 17:58
[2017-07-04] MEDS ORDERED: DINOPROSTONE 10 MG VAG INSERT VAGINAL ONE (18:00)
[2017-07-04] MEDS: PANTOPRAZOLE SOD 40 MG DELAYED RELEASE TAB PO SCH (18:00)
[2017-07-04] MEDS ORDERED: PENICILLIN G POTASSIUM INJ 2,500,000 UNITS in SODIUM CHLORIDE 0.9% INJ 100 ML IV SCH (20:00)
[2017-07-04] MEDS: SODIUM CHLORIDE 0.9% FLUSH 10 ML FLUSH IV FLUSH SCH (20:07)
[2017-07-04] MEDS: LABETALOL HCL 200 MG TAB PO SCH (21:14)
[2017-07-04] MEDS: ESCITALOPRAM OXALATE 10 MG TAB PO SCH (21:14)
[2017-07-05] VITALS (165 sets, daily range): BP systolic 125–159; BP diastolic 74–123; PULSE 61–146; RESP 14–20; TEMP 97.7–98.1; O2SAT 97–100
[2017-07-05] MEDS: LACTATED RINGER'S 1000 ML INJ 1,000 ML IV SCH ×2 (03:39→13:40)
[2017-07-05] MEDS: NIFEdipine 90 MG SUSTAINED RELEASE TAB PO PRN (07:27)
--- NOTE | 2017-07-05 07:41 | PD.LABORPN ---
Subjective Subjective doing well cramping now Objective Vital Signs Vital Signs Date Time Temp Pulse Resp B/P (MAP) Pulse Ox O2 Delivery O2 Flow Rate FiO2 07/05/17 07:18 16 07/05/17 07:15 98.0 74 143/102 (116) 07/05/17 07:15 65 07/05/17 07:05 68 07/05/17 07:00 72 07/05/17 06:55 77 07/05/17 06:50 71 07/05/17 06:45 66 07/05/17 06:40 74 07/05/17 06:35 66 07/05/17 06:30 64 07/05/17 06:25 99 07/05/17 06:20 77 07/05/17 06:15 65 07/05/17 06:10 74 07/05/17 06:05 71 07/05/17 06:00 75 07/05/17 05:55 71 07/05/17 05:50 73 07/05/17 05:45 74 07/05/17 05:40 70 07/05/17 05:35 66 07/05/17 05:30 69 07/05/17 05:25 75 07/05/17 05:20 72 07/05/17 05:15 71 07/05/17 05:10 63 07/05/17 05:05 64 07/05/17 05:00 71 07/05/17 04:55 79 07/05/17 04:45 88 07/05/17 04:40 73 07/05/17 04:35 74 07/05/17 04:30 72 07/05/17 04:25 66 07/05/17 04:20 72 07/05/17 04:15 71 07/05/17 04:10 70 07/05/17 04:05 71 07/05/17 04:00 68 07/05/17 03:55 67 07/05/17 03:50 64 07/05/17 03:45 71 07/05/17 03:40 79 07/05/17 03:39 98.0 78 16 134/89 (104) 07/05/17 03:35 77 07/05/17 03:30 75 07/05/17 03:25 77 07/05/17 03:20 81 07/05/17 03:15 77 07/05/17 03:10 74 07/05/17 03:05 74 07/05/17 03:00 70 07/05/17 02:55 79 07/05/17 02:50 73 07/05/17 02:45 77 07/05/17 02:40 80 07/05/17 02:35 79 07/05/17 02:30 73 07/05/17 02:25 89 07/05/17 02:20 82 07/05/17 02:10 72 07/05/17 02:05 72 07/05/17 02:00 84 07/05/17 01:55 74 07/05/17 01:50 79 07/05/17 01:45 77 07/05/17 01:40 79 07/05/17 01:35 71 07/05/17 01:30 68 07/05/17 01:25 73 07/05/17 01:20 69 07/05/17 01:15 85 07/05/17 01:10 74 07/05/17 01:05 71 07/05/17 01:00 73 07/05/17 00:55 72 07/05/17 00:50 70 07/05/17 00:45 77 07/05/17 00:40 74 07/05/17 00:35 71 07/05/17 00:30 74 07/05/17 00:25 75 07/05/17 00:20 71 07/05/17 00:15 71 07/05/17 00:10 72 07/05/17 00:05 75 07/05/17 00:00 72 07/04/17 23:55 78 07/04/17 23:50 73 07/04/17 23:45 73 07/04/17 23:40 80 Objective Pelvic Exam: Cervix: [-] Dilatation:1 Effacement: 50 Station: [-] Presentation: vtx Membranes: [intact Uterine Contractions: [-] FHT's: Category: 1 Baseline: [-] Reactive: [-] Variability: [-] Decels: [-] Weeks Gestation: 34 Gest Age Assessed Date: Jul 05, 2017 Gest Age Assessed Time: 07:35 Pt started active labor?: Yes Medical induction of labor?: Yes Artificial rupture of membrane: No Assessment/Plan Problem List: (1) 34 weeks gestation of ICD Codes: Z3A.34 - 34 weeks gestation of (2) Hypertension affecting in third trimester ICD Codes: O16.3 - Unspecified maternal hypertension, third trimester (3) Intrauterine growth restriction (IUGR) affecting care of mother, third trimester, single gestation ICD Codes: O36.5930 - Maternal care for other known or suspected poor growth, third trimester, not applicable or unspecified Plan: start Micah Lamar MD Jul 05, 2017 07:41
[2017-07-05] MEDS ORDERED: OXYTOCIN 30 UNITS-500ML PREMIX 500 ML IV PRN (07:45)
[2017-07-05] MEDS ORDERED: PENICILLIN G POTASSIUM INJ 5,000,000 UNITS in SODIUM CHLORIDE 0.9% INJ 100 ML IV ONE (08:30)
[2017-07-05] MEDS: LABETALOL HCL 200 MG TAB PO SCH ×2 (08:34→21:21)
[2017-07-05] MEDS: SODIUM CHLORIDE 0.9% FLUSH 10 ML FLUSH IV FLUSH SCH ×3 (08:35→21:05)
[2017-07-05] MEDS: PANTOPRAZOLE SOD 40 MG DELAYED RELEASE TAB PO SCH (08:35)
[2017-07-05] MEDS ORDERED: LABETALOL HCL 100 MG/20 ML VIAL ONE (11:12)
[2017-07-05] MEDS ORDERED: OXYTOCIN 10 UNIT/ML AMP IV ONE (12:00)
[2017-07-05] MEDS ORDERED: ONDANSETRON HCL 4 MG/2 ML VIAL IV ONE (12:00)
[2017-07-05] MEDS ORDERED: ePHEDrine/NS 25 MG/5 ML SYRINGE IV ONE (12:00)
[2017-07-05] MEDS ORDERED: LACTATED RINGER'S 1000 ML INJ 1,000 ML IV ONE (12:00)
[2017-07-05] MEDS ORDERED: DEXAMETHASONE SOD PHOS 4 MG/ML VIAL IV ONE (12:00)
[2017-07-05] MEDS ORDERED: ceFAZolin INJ 1,000 MG VIAL IV ONE (12:00)
[2017-07-05] MEDS ORDERED: STERILE WATER FOR INJECTION 20 ML VIAL IV ONE (12:00)
[2017-07-05] MEDS ORDERED: CALCIUM GLUCONATE 10% 1 GM/10 ML VIAL IV PUSH PRN (12:15)
[2017-07-05] MEDS ORDERED: LABETALOL HCL 100 MG/20 ML VIAL IV PUSH ONE ×6 (12:30→14:40)
[2017-07-05] MEDS: PENICILLIN G POTASSIUM INJ 2,500,000 UNITS in SODIUM CHLORIDE 0.9% INJ 100 ML IV SCH ×2 (12:47→16:45)
--- NOTE | 2017-07-05 12:55 | PD.LABORPN ---
Subjective Subjective doing well, but pitocin at 16 and ctx mild.she is doing well otherwise. Bp now controlled with IV labetalol Objective Vital Signs Vital Signs Date Time Temp Pulse Resp B/P (MAP) Pulse Ox O2 Delivery O2 Flow Rate FiO2 07/05/17 12:45 98.1 07/05/17 12:40 132 07/05/17 12:31 70 146/101 (116) 07/05/17 12:30 73 07/05/17 12:22 98.0 07/05/17 12:10 73 07/05/17 12:05 72 07/05/17 12:01 79 143/110 (121) 07/05/17 12:00 86 07/05/17 11:53 79 145/98 (114) 07/05/17 11:50 78 07/05/17 11:45 78 07/05/17 11:40 68 07/05/17 11:39 72 130/117 (121) 07/05/17 11:30 16 07/05/17 11:05 71 07/05/17 11:01 83 151/123 (132) 07/05/17 11:00 82 07/05/17 10:35 79 07/05/17 10:30 83 149/115 (126) 07/05/17 10:30 80 07/05/17 10:01 82 141/105 (117) 07/05/17 10:00 77 07/05/17 09:30 80 159/109 (126) 07/05/17 09:30 77 07/05/17 09:01 78 152/105 (121) 07/05/17 09:00 15 07/05/17 09:00 82 07/05/17 09:00 16 07/05/17 08:40 73 07/05/17 08:35 76 07/05/17 08:30 72 138/101 (113) 07/05/17 08:30 70 07/05/17 08:05 66 07/05/17 08:05 65 148/108 (121) 07/05/17 08:00 78 07/05/17 07:18 16 07/05/17 07:15 98.0 74 143/102 (116) 07/05/17 07:15 65 07/05/17 07:05 68 07/05/17 07:00 72 07/05/17 06:55 77 07/05/17 06:50 71 07/05/17 06:45 66 07/05/17 06:40 74 07/05/17 06:35 66 07/05/17 06:30 64 07/05/17 06:25 99 07/05/17 06:20 77 07/05/17 06:15 65 07/05/17 06:10 74 07/05/17 06:05 71 07/05/17 06:00 75 07/05/17 05:55 71 07/05/17 05:50 73 07/05/17 05:45 74 07/05/17 05:40 70 07/05/17 05:35 66 07/05/17 05:30 69 07/05/17 05:25 75 07/05/17 05:20 72 07/05/17 05:15 71 07/05/17 05:10 63 07/05/17 05:05 64 07/05/17 05:00 71 07/05/17 04:55 79 Objective Pelvic Exam: Cervix: [-] Dilatation: [-] Effacement: [-] Station: [-] Presentation: [-] Membranes: [intact or ruptured] Uterine Contractions: [-] FHT's: Category: 1 Baseline: [-] Reactive: [-] Variability: [-] Decels: [-] Weeks Gestation: 34 Gest Age Assessed Date: Jul 05, 2017 Gest Age Assessed Time: 07:35 Pt started active labor?: Yes Medical induction of labor?: Yes Artificial rupture of membrane: No Assessment/Plan Problem List: (1) 34 weeks gestation of ICD Codes: Z3A.34 - 34 weeks gestation of (2) Hypertension affecting in third trimester ICD Codes: O16.3 - Unspecified maternal hypertension, third trimester (3) Intrauterine growth restriction (IUGR) affecting care of mother, third trimester, single gestation ICD Codes: O36.5930 - Maternal care for other known or suspected poor growth, third trimester, not applicable or unspecified Plan: start Micah Lamar MD Jul 05, 2017 12:54
--- NOTE | 2017-07-05 17:41 | PD.LABORPN ---
Subjective Subjective doing well cvx closed for CS at 19:30 at patient request Objective Vital Signs Vital Signs Date Time Temp Pulse Resp B/P (MAP) Pulse Ox O2 Delivery O2 Flow Rate FiO2 07/05/17 17:05 84 07/05/17 17:01 82 151/108 (122) 07/05/17 17:00 84 07/05/17 16:45 16 07/05/17 16:42 98.1 07/05/17 16:40 75 07/05/17 16:35 72 07/05/17 16:31 75 146/105 (119) 07/05/17 16:30 69 07/05/17 16:05 75 07/05/17 16:01 72 144/98 (113) 07/05/17 16:00 74 07/05/17 15:40 77 07/05/17 15:35 79 07/05/17 15:31 76 141/94 (110) 07/05/17 15:30 78 07/05/17 15:10 76 07/05/17 15:05 82 07/05/17 15:01 87 128/74 (92) 07/05/17 15:00 78 07/05/17 14:35 81 07/05/17 14:31 82 133/86 (102) 07/05/17 14:21 83 125/87 (100) 07/05/17 14:15 146 07/05/17 14:01 70 147/108 (121) 07/05/17 14:00 16 07/05/17 14:00 74 07/05/17 13:42 61 149/113 (125) 07/05/17 13:40 76 07/05/17 13:35 72 07/05/17 13:31 71 148/119 (129) 07/05/17 13:30 75 07/05/17 13:05 78 07/05/17 13:01 78 151/103 (119) 07/05/17 13:00 73 07/05/17 12:45 98.1 07/05/17 12:40 132 07/05/17 12:31 70 146/101 (116) 07/05/17 12:30 73 07/05/17 12:22 98.0 07/05/17 12:10 73 07/05/17 12:05 72 07/05/17 12:01 79 143/110 (121) 07/05/17 12:00 86 07/05/17 11:53 79 145/98 (114) 07/05/17 11:50 78 07/05/17 11:45 78 07/05/17 11:40 68 07/05/17 11:39 72 130/117 (121) 07/05/17 11:30 16 07/05/17 11:05 71 07/05/17 11:01 83 151/123 (132) 07/05/17 11:00 82 07/05/17 10:35 79 07/05/17 10:30 83 149/115 (126) 07/05/17 10:30 80 07/05/17 10:01 82 141/105 (117) 07/05/17 10:00 77 Objective Pelvic Exam: Cervix: [-] Dilatation: [-] Effacement: [-] Station: [-] Presentation: [-] Membranes: [intact or ruptured] Uterine Contractions: [-] FHT's: Category: 1 Baseline: [-] Reactive: [-] Variability: [-] Decels: [-] Weeks Gestation: 34 Gest Age Assessed Date: Jul 05, 2017 Gest Age Assessed Time: 07:35 Pt started active labor?: Yes Medical induction of labor?: Yes Artificial rupture of membrane: No Assessment/Plan Problem List: (1) 34 weeks gestation of ICD Codes: Z3A.34 - 34 weeks gestation of (2) Hypertension affecting in third trimester ICD Codes: O16.3 - Unspecified maternal hypertension, third trimester (3) Intrauterine growth restriction (IUGR) affecting care of mother, third trimester, single gestation ICD Codes: O36.5930 - Maternal care for other known or suspected poor growth, third trimester, not applicable or unspecified Plan: start pitocin Assessment and Plan failed induction for CS Micah Damico MD Jul 05, 2017 17:41
[2017-07-05] MEDS ORDERED: MORPHINE SULFATE PF 5 MG/10 ML VIAL ONE (18:06)
[2017-07-05] MEDS ORDERED: ACETAMINOPHEN 1000 MG/100 ML 100 ML IV ONE (18:06)
[2017-07-05] MEDS ORDERED: CEFAZOLIN INJ 2,000 MG in SODIUM CHLORIDE 0.9% INJ 100 ML IV SCH (19:00)
[2017-07-05] MEDS ORDERED: EPIDURAL-NO SYSTEMIC NARCOTICS PRN (19:24)
[2017-07-05] MEDS ORDERED: EPIDURAL-NALOXONE HCL 0.4 MG/ML AMP IV PUSH PRN (19:24)
[2017-07-05] MEDS ORDERED: EPIDURAL-DIPHENHYDRAMINE HCL 50 MG CAP PO PRN (19:24)
[2017-07-05] MEDS ORDERED: EPIDURAL-DIPHENHYDRAMINE HCL 50 MG/ML VIAL IV PUSH PRN (19:24)
[2017-07-05] MEDS ORDERED: EPIDURAL-DO NOT ADMINISTER ANTICOAGULANTS PRN (19:24)
[2017-07-05] MEDS ORDERED: OXYTOCIN 30 UNITS-500ML PREMIX 500 ML IV ONE (20:15)
[2017-07-05] MEDS ORDERED: KETOROLAC TROMETHAMINE 60 MG/2 ML (IM) VIAL IM PRN (20:15)
[2017-07-05] MEDS ORDERED: SIMETHICONE 80 MG CHEWABLE TAB PO PRN (20:15)
[2017-07-05] MEDS ORDERED: SODIUM CHLORIDE 0.9% FLUSH 10 ML FLUSH IV FLUSH PRN (20:15)
--- NOTE | 2017-07-05 20:20 | PD.OB.DELI ---
Procedure Note Section Procedure Pre Op Diagnosis: (1) Oligohydramnios (2) 34 weeks gestation of (3) Intrauterine growth restriction (IUGR) affecting care of mother, third trimester, single gestation (4) Hypertension affecting in third trimester Post Op Diagnosis: Performed by Micah Damico Procedure: Primary Low Transverse Sec Indication for delivery: Maternal medical problems Informed consent obtained: For anesthesia, For procedure Confirmed correct: Patient, Procedure, Time-out taken Anesthesia: Spinal Urinary catheter: Inserted using sterile technique, To dependent drainage Sterile preparation: Duraprep Position: Supine with wedge to left side Operative Features Skin Incision: Pfannenstiel Uterine Incision: Low transverse w/knife / blunt ext Membranes Ruptured: Artificially Presentation: Occiput anterior Delivery date: Jul 05, 2017 Delivery time: 19:39 Delivery of : Uneventful : Male One Minute : 2 Five Minute : 7 Ten Minute : 8 Weight: 2# 15 oz Status of : Viable Placenta delivered: Intact Medications: Antibiotics, Oxytocin Estimated blood loss: 250 Procedure tolerated: Well Maternal Condition: Stable Baby Complications: Other (severe IUGR) Condition: Stable Micah Damico MD Jul 05, 2017 20:20
[2017-07-05] MEDS: ESCITALOPRAM OXALATE 10 MG TAB PO SCH (21:21)
[2017-07-05] MEDS ORDERED: KETOROLAC TROMETHAMINE 30 MG/ML (IVP) VIAL ONE (21:22)
[2017-07-05] MEDS ORDERED: ONDANSETRON HCL 4 MG/2 ML VIAL IV PUSH PRN (23:30)
[2017-07-06] VITALS (11 sets, daily range): BP systolic 119–139; BP diastolic 62–92; PULSE 64–79; RESP 18–20; TEMP 97.6–98.4
[2017-07-06] MEDS ORDERED: LACTATED RINGER'S 1000 ML INJ 1,000 ML IV SCH (01:12)
[2017-07-06 05:51] LABS: AUTOMATED NEUTROPHIL # 16.5 TH/MM3 (1.8-7.7); BASOPHIL % 0.2 % (0.0-2.0); HEMATOCRIT 33.8 % (35.0-46.0); HEMOGLOBIN 11.6 GM/DL (11.6-15.3); LYMPH % 9.3 % (9.0-44.0); LYMPHOCYTE # 1.8 TH/MM3 (1.0-4.8); MEAN CELL VOLUME 96.7 FL (80.0-100.0); MEAN CORPUSCULAR HEMOGLOBIN 33.3 PG (27.0-34.0); MEAN CORPUSCULAR HGB CONC 34.4 % (32.0-36.0); MEAN PLATELET VOLUME 8.6 FL (7.0-11.0); MONO % 3.6 % (0.0-8.0); MONOCYTE # 0.7 TH/MM3 (0-0.9); NEUT % 86.9 % (16.0-70.0); PLATELET COUNT 237 TH/MM3 (150-450); RED BLOOD COUNT 3.49 MIL/MM3 (4.00-5.30); RED CELL DISTRIBUTION WIDTH 12.8 % (11.6-17.2)
[2017-07-06] MEDS ORDERED: OXYTOCIN 30 UNITS-500ML PREMIX 500 ML IV PRN (06:15)
--- NOTE | 2017-07-06 08:27 | MP ---
cc: Micah Damico MD DATE OF OPERATION: 07/05/2017 PROCEDURE PERFORMED: Primary low transverse section. PREOPERATIVE DIAGNOSES: Severe intrauterine growth restriction, oligohydramnios, failed induction. POSTOPERATIVE DIAGNOSES: Severe intrauterine growth restriction, oligohydramnios, failed induction. SURGEON: Micah Damico MD ESTIMATED BLOOD LOSS: 250 mL. COMPLICATIONS: None. ANESTHESIA: Davon Dao CRNA, spinal anesthesia. COMPLICATIONS: None. FINDINGS: Severely IUGR , with a small placenta, small cord and a small uterus. PROCEDURE IN DETAIL: After informed consent, the patient was taken to the operating room, where she was placed under spinal anesthesia, placed in supine position with left lateral tilt. Abdomen, peritoneum, vagina were prepped and draped in normal sterile fashion. A Ngo was placed to dependent gravity. Once adequate anesthesia was assured and a timeout was taken, a Pfannenstiel skin incision was carried sharply through the skin to the fascia. The fascia was nicked in the midline and the incision was extended laterally using Gomez scissors. Rectus muscle dissected off with the fascia and blunt dissection was performed. The rectus muscle was in the midline. Peritoneum was entered bluntly with a finger. The incision extended laterally using blunt traction. Uterus is noted to be midline. A bladder flap was created and then the patient had varicosities on the front of her uterus. We avoided the varicosities, made our incision in the low transverse type. We pushed our finger through the uterine wall after the incision was made, 80% [address] through the myometrium. We then with gentle traction upward and downward extended the incision laterally. 's head was brought to the incision using fundal pressure. The infant's head did not readily deliver, so generally we placed 2 hands on the side of the 's head and it was gently eased out, protecting the head as it delivered. Once head delivered and the body delivered, cord was delayed clamping 45 seconds. It was crying, sputtering, had great tone, good heart rate while on the mother's abdomen. At 45 seconds, the cord was clamped and cut and the infant was handed to pediatrics in attendance. At that point, Apgars were assigned of 2, 7 and 8. Cord gas was collected. Placenta was delivered manually. The uterus exteriorized, wiped free from all remaining products of conception. The uterus was very small and the uterine incision was low transverse. A running locked stitch of chromic suture was placed. A second layer was placed for hemostasis and to bring the middle portion back together. The uterus was placed back in the abdomen, noted to be hemostatic. The peritoneum was closed with chromic suture. The fascia was closed with Vicryl suture and the skin was closed with subcuticular stitch. Each layer was noted to be hemostatic and the patient tolerated the procedure well. The went to NICU and the mother went to recovery room. MD DOMO Wilson/ENOCH , 08:24 PM , 08:44 PM
--- NOTE | 2017-07-06 08:31 | HHI.OB ---
Subjective Post Day: 1 Remarks doing well Objective Vitals/I&O Vital Signs Date Time Temp Pulse Resp B/P (MAP) Pulse Ox O2 Delivery O2 Flow Rate FiO2 07/06/17 06:16 69 139/91 (107) 07/06/17 02:08 64 127/79 (95) 07/06/17 02:06 98.0 07/06/17 02:05 18 07/05/17 22:15 16 07/05/17 22:12 65 145/96 (112) 07/05/17 21:39 97.7 07/05/17 21:30 148/98 (115) 07/05/17 21:29 19 97 07/05/17 21:29 70 07/05/17 21:15 138/99 (112) 07/05/17 21:15 73 19 99 07/05/17 21:00 100 07/05/17 21:00 64 20 143/97 (112) 07/05/17 20:45 99 07/05/17 20:45 149/97 (114) 07/05/17 20:45 63 20 07/05/17 20:30 100 07/05/17 20:30 62 14 142/91 (108) 07/05/17 20:15 100 07/05/17 20:13 98.1 67 15 140/86 (104) 07/05/17 19:00 72 07/05/17 18:35 75 07/05/17 18:31 80 143/110 (121) 07/05/17 18:30 75 07/05/17 17:05 84 07/05/17 17:01 82 151/108 (122) 07/05/17 17:00 84 07/05/17 16:45 16 07/05/17 16:42 98.1 07/05/17 16:40 75 07/05/17 16:35 72 07/05/17 16:31 75 146/105 (119) 07/05/17 16:30 69 07/05/17 16:05 75 07/05/17 16:01 72 144/98 (113) 07/05/17 16:00 74 07/05/17 15:40 77 07/05/17 15:35 79 07/05/17 15:31 76 141/94 (110) 07/05/17 15:30 78 07/05/17 15:10 76 07/05/17 15:05 82 07/05/17 15:01 87 128/74 (92) 07/05/17 15:00 78 07/05/17 14:35 81 07/05/17 14:31 82 133/86 (102) 07/05/17 14:21 83 125/87 (100) 07/05/17 14:15 146 07/05/17 14:01 70 147/108 (121) 07/05/17 14:00 16 07/05/17 14:00 74 07/05/17 13:42 61 149/113 (125) 07/05/17 13:40 76 07/05/17 13:35 72 07/05/17 13:31 71 148/119 (129) 07/05/17 13:30 75 07/05/17 13:05 78 07/05/17 13:01 78 151/103 (119) 07/05/17 13:00 73 07/05/17 12:45 98.1 07/05/17 12:40 132 07/05/17 12:31 70 146/101 (116) 07/05/17 12:30 73 07/05/17 12:22 98.0 07/05/17 12:10 73 07/05/17 12:05 72 07/05/17 12:01 79 143/110 (121) 07/05/17 12:00 86 07/05/17 11:53 79 145/98 (114) 07/05/17 11:50 78 07/05/17 11:45 78 07/05/17 11:40 68 07/05/17 11:39 72 130/117 (121) 07/05/17 11:30 16 07/05/17 11:05 71 07/05/17 11:01 83 151/123 (132) 07/05/17 11:00 82 07/05/17 10:35 79 07/05/17 10:30 83 149/115 (126) 07/05/17 10:30 80 07/05/17 10:01 82 141/105 (117) 07/05/17 10:00 77 07/05/17 09:30 80 159/109 (126) 07/05/17 09:30 77 4/4/18 09:01 78 152/105 (121) 07/05/17 09:00 15 07/05/17 09:00 82 07/05/17 09:00 16 07/05/17 08:40 73 07/05/17 08:35 76 Objective Remarks GENERAL: Well-nourished, well-developed patient. ABDOMEN/GI: Abdomen soft, non-tender. Fundus: Firm, non-tender at umbilicus. GENITOURINARY: Light to moderate bleeding. EXTREMITIES: No cyanosis or edema, non-tender, without signs of DVT. Medications and IVs Current Medications Medications (Trade) Dose Ordered Sig/Jordin Route Start Time Stop Time Status Last Admin (Lexapro) 10 mg DAILY PO 07/04/17 18:00 07/05/17 21:21 (Trandate) 200 mg BID PO 07/04/17 21:00 07/05/17 21:21 (Procardia Xl) 90 mg DAILY PRN PO 07/04/17 18:00 07/05/17 07:27 (Protonix) 40 mg DAILY PO 07/04/17 18:00 07/05/17 08:35 Lactated Ringer's 1,000 ml @ 100 mls/hr Q10H IV 07/06/17 01:12 07/06/17 21:11 07/05/17 22:45 Oxytocin 500 ml @ 100 mls/hr UNSCH X1 PRN IV 07/06/17 06:15 07/07/17 06:14 (NS Flush) 2 ml BID IV FLUSH 07/05/17 21:00 (NS Flush) 2 ml UNSCH PRN IV FLUSH 07/05/17 20:15 (Mylicon Chew) 80 mg QID PRN PO 07/05/17 20:15 (Motrin) 600 mg Q6H PRN PO 07/06/17 20:15 (Toradol Inj) 30 mg Q6H PRN IM 07/05/17 20:15 07/06/17 20:14 07/05/17 21:25 (Percocet 5-325 Mg) 1 tab Q4H PRN PO 07/05/17 20:15 (Percocet 5-325 Mg) 2 tab Q4H PRN PO 07/05/17 20:15 (M-M-R Ii Inj) 0.5 ml ONCE ONCE SQ 07/06/17 16:00 07/06/17 16:01 (Boostrix Inj) 0.5 ml ONCE ONCE IM 07/06/17 16:00 07/06/17 16:01 Miscellaneous Information NO SYSTEMIC NARCOTICS TO BE GIVEN FO... UNSCH PRN .XX 07/05/17 19:24 07/06/17 19:23 (Narcan Inj) 0.4 mg UNSCH PRN IV PUSH 07/05/17 19:24 07/06/17 19:23 (Benadryl Inj) 25 mg Q6H PRN IV PUSH 07/05/17 19:24 07/06/17 19:23 (Benadryl) 50 mg Q6H PRN PO 07/05/17 19:24 07/06/17 19:23 Miscellaneous Information ALL NURSING DEPARTMENTS UNSCH PRN .XX 07/05/17 19:24 07/06/17 19:23 (Zofran Inj) 4 mg Q6H PRN IV PUSH 07/05/17 23:30 07/05/17 23:30 Assessment/Plan Problem List: (1) 34 weeks gestation of ICD Codes: Z3A.34 - 34 weeks gestation of (2) Hypertension affecting in third trimester ICD Codes: O16.3 - Unspecified maternal hypertension, third trimester (3) Intrauterine growth restriction (IUGR) affecting care of mother, third trimester, single gestation ICD Codes: O36.5930 - Maternal care for other known or suspected poor growth, third trimester, not applicable or unspecified Plan: start pitocin Assessment and Plan delivered by CS Micah Damico MD Jul 06, 2017 08:31
[2017-07-06] MEDS: PANTOPRAZOLE SOD 40 MG DELAYED RELEASE TAB PO SCH (08:32)
[2017-07-06] MEDS: ESCITALOPRAM OXALATE 10 MG TAB PO SCH (08:32)
[2017-07-06] MEDS: LABETALOL HCL 200 MG TAB PO SCH ×2 (08:33→20:48)
[2017-07-06] MEDS: oxyCODONE/ACETAMINOPHEN 5 MG/325 MG TAB PO PRN ×4 (08:33→20:46)
[2017-07-06] MEDS: IBUPROFEN 600 MG TAB PO PRN ×2 (14:42→20:46)
[2017-07-06] MEDS ORDERED: DIPHTH/TETANUS/ACEL PERTUSSIS (BOOSTER) 0.5 ML VIAL/PFS IM ONE (16:00)
[2017-07-06] MEDS ORDERED: MEASLES, MUMPS, RUBELLA VACCINE 0.5 ML VIAL SQ ONE (16:00)
[2017-07-06] MEDS ORDERED: IBUPROFEN 600 MG TAB PO PRN (20:15)
[2017-07-06] MEDS: SODIUM CHLORIDE 0.9% FLUSH 10 ML FLUSH IV FLUSH SCH (20:47)
[2017-07-07 04:04] VITALS: BP 124/71; PULSE 75; RESP 17; TEMP 97.9
[2017-07-07 08:00] VITALS: BP 154/98; PULSE 61; RESP 16; TEMP 98.5
[2017-07-07] MEDS: ESCITALOPRAM OXALATE 10 MG TAB PO SCH (08:28)
[2017-07-07] MEDS: LABETALOL HCL 200 MG TAB PO SCH ×2 (08:29→20:39)
[2017-07-07] MEDS: oxyCODONE/ACETAMINOPHEN 5 MG/325 MG TAB PO PRN ×3 (08:29→20:39)
[2017-07-07] MEDS: IBUPROFEN 600 MG TAB PO PRN ×3 (08:29→20:39)
[2017-07-07] MEDS: PANTOPRAZOLE SOD 40 MG DELAYED RELEASE TAB PO SCH (08:29)
--- NOTE | 2017-07-07 09:30 | HHI.OB ---
Subjective Post Day: 2 Remarks doing well dc in am Objective Vitals/I&O Vital Signs Date Time Temp Pulse Resp B/P (MAP) Pulse Ox O2 Delivery O2 Flow Rate FiO2 07/07/17 04:04 97.9 75 17 124/71 (88) 07/06/17 23:53 98.2 74 18 119/62 (81) 07/06/17 19:40 97.6 07/06/17 19:40 74 18 131/79 (96) 07/06/17 16:00 98.1 79 18 128/79 (95) 07/06/17 13:30 20 07/06/17 13:11 77 123/63 (83) Objective Remarks GENERAL: Well-nourished, well-developed patient. ABDOMEN/GI: Abdomen soft, non-tender. Fundus: Firm, non-tender at umbilicus. GENITOURINARY: Light to moderate bleeding. EXTREMITIES: No cyanosis or edema, non-tender, without signs of DVT. Medications and IVs Current Medications Medications (Trade) Dose Ordered Sig/Jordin Route Start Time Stop Time Status Last Admin (Lexapro) 10 mg DAILY PO 07/04/17 18:00 07/07/17 08:28 (Trandate) 200 mg BID PO 07/04/17 21:00 07/07/17 08:29 (Procardia Xl) 90 mg DAILY PRN PO 07/04/17 18:00 07/05/17 07:27 (Protonix) 40 mg DAILY PO 07/04/17 18:00 07/07/17 08:29 (NS Flush) 2 ml BID IV FLUSH 07/05/17 21:00 07/06/17 20:47 (NS Flush) 2 ml UNSCH PRN IV FLUSH 07/05/17 20:15 (Mylicon Chew) 80 mg QID PRN PO 07/05/17 20:15 (Percocet 5-325 Mg) 1 tab Q4H PRN PO 07/05/17 20:15 07/06/17 14:43 (Percocet 5-325 Mg) 2 tab Q4H PRN PO 07/05/17 20:15 07/07/17 08:29 (Zofran Inj) 4 mg Q6H PRN IV PUSH 07/05/17 23:30 07/05/17 23:30 (Motrin) 600 mg Q6H PRN PO 07/06/17 14:45 07/07/17 08:29 Assessment/Plan Problem List: (1) 34 weeks gestation of ICD Codes: Z3A.34 - 34 weeks gestation of (2) Hypertension affecting in third trimester ICD Codes: O16.3 - Unspecified maternal hypertension, third trimester (3) Intrauterine growth restriction (IUGR) affecting care of mother, third trimester, single gestation ICD Codes: O36.5930 - Maternal care for other known or suspected poor growth, third trimester, not applicable or unspecified Plan: start pitocin Assessment and Plan delivered by CS Micah Damico MD Jul 07, 2017 09:30
--- NOTE | 2017-07-07 09:31 | HHI.DCPOC ---
Discharge Care Plan Diagnosis: (1) 34 weeks gestation of (2) Hypertension affecting in third trimester (3) Intrauterine growth restriction (IUGR) affecting care of mother, third trimester, single gestation Report Symptoms to Your Doctor -Temperature above 100.5 degrees -Redness, of incision or excessive or foul smelling drainage -Unusual pain or calf pain -Increased vaginal bleeding -Painful or difficulty urinating -Feelings of extreme sadness or anxiety after 2 weeks Goals to Promote Your Health * To prevent worsening of your condition and complications * To maintain your health at the optimal level Directions to Meet Your Goals Take your medications as prescribed Follow your dietary instruction Follow activity as directed Ensure plenty of rest for recovery Drink fluids for hydration Keep your appointments as scheduled Take your immunizations and boosters as scheduled If your symptoms worsen call your PCP, if no PCP go to Urgent Care Center or Emergency Room Smoking is Dangerous to Your Health. Avoid second hand smoke Call the 24-hour crisis hotline for domestic abuse at Micah Damico MD Jul 07, 2017 09:31
[2017-07-07] MEDS ORDERED: OXYC1TAB63 PO (09:32)
[2017-07-07 12:15] VITALS: BP 132/77; PULSE 68; RESP 18; TEMP 98.1
[2017-07-07] MEDS: DOCUSATE SODIUM 100 MG CAP PO SCH ×2 (14:06→20:38)
[2017-07-07 16:00] VITALS: BP 143/90; PULSE 73; RESP 20; TEMP 98.7; O2SAT 96
[2017-07-07 20:00] VITALS: BP 152/91; PULSE 66; RESP 18; TEMP 98.1; O2SAT 97
[2017-07-08] VITALS: BP 155/87; PULSE 73; RESP 18; TEMP 97.9; O2SAT 96
[2017-07-08] MEDS: oxyCODONE/ACETAMINOPHEN 5 MG/325 MG TAB PO PRN (00:46)
[2017-07-08 04:00] VITALS: BP 131/92; PULSE 78; RESP 20; TEMP 98; O2SAT 95
[2017-07-08 08:15] VITALS: BP 163/101; PULSE 70; RESP 16; TEMP 97.7
[2017-07-08] MEDS: NIFEdipine 90 MG SUSTAINED RELEASE TAB PO PRN (08:26)
[2017-07-08] MEDS: LABETALOL HCL 200 MG TAB PO SCH (08:26)
[2017-07-08] MEDS: PANTOPRAZOLE SOD 40 MG DELAYED RELEASE TAB PO SCH (08:26)
[2017-07-08] MEDS: ESCITALOPRAM OXALATE 10 MG TAB PO SCH (08:26)
[2017-07-08] MEDS: DOCUSATE SODIUM 100 MG CAP PO SCH (08:26)
[2017-07-08 09:28] VITALS: BP 135/97
--- NOTE | 2017-07-08 10:10 | HHI.DS ---
Admission Date Jul 04, 2017 at 15:01 Admitting Diagnosis Diagnosis: Delivery Date: Jul 05, 2017 : Primary : Male Brief History 27 yo wf who has severe IUGR and testing 2x per week. she now has oligo and is being induced Pt Condition on Discharge: Good Discharge Disposition: Discharge Home Discharge Instructions Diet Instructions: As Tolerated, No Restrictions Activities You Can Perform: Pelvic Rest Lidia Velásquez MD Jul 08, 2017 10:10
== END 2017-07-08 12:00 | disposition home or self-care (01) | DRG 765 ==
LOC: HOBED 14:45 → H2EB 15:01 → H2EA 07-05 21:49 → H1EA 07-06 13:57
PROVIDERS: ADMIT Obstetrics & Gynecology; ATTEND Obstetrics & Gynecology
PROC: 3E0P7VZ Introduction of Hormone into Female Reproductive, Via Natural or Artificial Opening (ICD-10-PCS; 2017-07-04)
PROC: 10D00Z1 Extraction of Products of Conception, Low, Open Approach (ICD-10-PCS; principal; 2017-07-05)
DX: O41.03X0 Oligohydramnios, third trimester, not applicable or unspecified (principal); O36.5930 Maternal care for other known or suspected poor fetal growth, third trimester, not applicable or unspecified; O61.9 Failed induction of labor, unspecified; Z3A.34 34 weeks gestation of pregnancy; Z37.0 Single live birth; O16.4 Unspecified maternal hypertension, complicating childbirth
CPT/HCPCS: 59025; 76815; 76816; 76819; 76820; 76821; 80307; 81001; 82805; 85025; 86900; 86901; 88307; 90715; 99283; G0481; J0131; J0690; J1100; J1885; J2274; J2405; J2540; J2590; J7120